=== PATIENT | male | born 1960 | race Caucasian/White ===

== ENCOUNTER → 2023-12-17 10:03 | Outpatient (REF) | payer BC, SELFPAY | LOC: RAD 10:03 | PROVIDERS: ATTENDING PHYSICIAN Physician Assistant; FAMILY PHYSICIAN Nurse Practitioner Family | DX: M25.641 Stiffness of right hand, not elsewhere classified (principal); M25.642 Stiffness of left hand, not elsewhere classified; M79.671 Pain in right foot; M79.672 Pain in left foot | CPT/HCPCS: 73130; 73630 ==

== ENCOUNTER 2024-11-09 14:19 | Emergency (ER) | payer BC, SELFPAY ==
[2024-11-09] VITALS (7 sets, daily range): BP systolic 111–144; BP diastolic 76–95; BMI 25.0
--- NOTE | 2024-11-09 15:18 | ED.GENMED ---
History of Present Illness
General
Chief Complaint: Heart Rate Problem
Source: patient and spouse
Exam Limitations: none
Time Seen by Provider: 11/09/24 14:59
Nursing documentation reviewed up to this point in time: agreed with
History of Present Illness
History of Present Illness:
64-year-old male with a past medical history of SVT who presents to the ER with his for evaluation of palpitations. Patient reports symptoms have been ongoing for the past few days he says he has had palpitations and fatigue. Reports mild
dizziness. Denies any shortness of breath or chest pain. He wears heart rate monitor he says his heart rate has consistently been above 100. Went to his primary doctor today who did the EKG which showed that he was in A-fib with RVR. He was
referred to the ER for evaluation. He has a history of SVT and says that he has 'episodes' about every month that usually last anywhere from 5 minutes to an hour but typically resolve on their own. He is not on any blood thinners or any other
medications. Previously seen by Dr. Gerber.
Past History
Past History
ED Past Medical History: None
ED Past Surgical History: None
Social History
Tobacco: Non-smoker
Review of Systems
Review of Systems
All Other Systems: ROS reviewed and negative except as documented in HPI and ROS
Constitutional: Reports fatigue; Denies fever or chills
Respiratory: Denies cough or trouble breathing
Cardiac: Reports palpitations; Denies chest pain or diaphoresis
ABD/GI: Denies abdominal pain, nausea, vomiting or diarrhea
Musculoskeletal: Denies edema, neck pain or back pain
Neurological: Reports dizzy; Denies headache
Phy Exam
Physical Exam
Physical Exam:
General: Awake, alert, oriented x3; no acute distress
Head: Normocephalic, atraumatic
Eyes: Conjunctiva normal
Throat: Airway intact, handling secretions
Neck: Trachea midline, supple without meningismus
Lungs: Clear to auscultation bilaterally, no wheezing, rales, rhonchi
Heart: Tachycardia with irregular regular rhythm, no murmurs, gallops, or rubs
Neuro: No gross deficits
Extremities: No edema in extremities, warm and well-perfused
Scores
[id number] Score for Afib Stroke Risk
Age in Years (65=0, 65-74=1, >/=75=2): <65
Sex (Female=+1): Male
Congestive Heart Failure History (Yes=+1): No
Hypertension History (Yes=+1): No
Stroke/TIA/Thromboembolism History (Yes=+2): No
Vascular Disease History (Yes=+1): No
Diabetes Mellitus (Yes=+1): No
Score: 0
Anticoagulation Recommendations: Anticoagulation not indicated (as validated in nonvalvular afib). Consider anticoagulation irrespective of score in patients with HCM
Heart Failure Risk
Heart Failure Risk Score: Not Applicable
Heart Score for Chest Pain Patients
STEMI patient?: Not applicable
Withdrawal Assessment of Alcohol
Withdrawal Assessment Completed?: Not applicable
Course
Orders/Labs/Results
Orders:
Orders
11/09/24 14:20
Electrocardiogram (*1) Urgent
Reason for Study: Abnormal EKG
EKG- Treatment ONCE
11/09/24 14:56
CMP [Comprehensive Metabolic Panel] Urgent
Magnesium Urgent
TSH Reflex To Free T4 Urgent
11/09/24 14:57
Complete Blood Count/With Diff Urgent
11/09/24 15:14
0.9% Sodium Chloride 1000 ml [Nss] 1,000 ml IV BOLUS
Diltiazem HCl [Cardizem] 10 mg IV NOW STA
11/09/24 15:30
Metoprolol Xl [Toprol Xl] 12.5 mg PO NOW STA
11/09/24 15:37
Case Management Consult ONCE
Case Management Consult: Other
Comment: eliquis
Apixaban [Eliquis] 5 mg PO ONCE ONE
Abnormal Lab Results
11/09/24 11/09/24
14:56 14:57
WBC 12.1 H 10^3/uL
(4.8-10.8)
MCH 31.8 H pg
(27.0-31.0)
Absolute Neuts (auto) 8.1 H 10^3/uL
(1.4-6.5)
Absolute Monos (auto) 0.8 H 10^3/uL
(0.1-0.6)
Carbon Dioxide 21 L mmol/L
(22-30)
BUN 29 H mg/dl
(9-20)
Glucose 184 H mg/dl
(70-99)
11/09/24 14:57
11/09/24 14:56
Vital Signs
Initial and Last Documented VS:
Initial Vital Signs
Temp Pulse Resp BP Pulse Ox
36.3 C 128 16 144/86 100
11/09/24 14:22 11/09/24 14:22 11/09/24 14:22 11/09/24 14:22 11/09/24 14:22
Last Documented Vital Signs
Temp Pulse Resp BP Pulse Ox
36.3 C 96 13 124/78 98
11/09/24 14:22 11/09/24 16:15 11/09/24 16:15 11/09/24 16:00 11/09/24 16:15
MDM/Problems Addressed
Differential Diagnosis Includes:
atrial fibrillation
MDM/Problems Addressed:
64-year-old male presents for evaluation of palpitations and fatigue, dizziness for the past few days. Found to have A-fib with RVR in his PCPs office and sent to the ER for assessment and treatment. Vital signs notable for tachycardia; physical
exam as above. Will place an IV send labs including a CBC and CMP, thyroid studies. Will provide fluids, diltiazem for rate control�would not be a good candidate for elective ED cardioversion given symptoms consistent for the past few days with no
anticoagulation on board. Will start on Eliquis pending labs. Reassess after the above.
Heart rate improved to 80s�90s with 1 dose of IV diltiazem. Will provide p.o. dose of Toprol for longer acting rate control. Patient feeling better with decreased heart rate. Continue to monitor pending labs.
Patient has remained rate controlled after medications as above. Labs reviewed CBC and CMP no clinically significant abnormalities. Thyroid studies normal. Started on Eliquis. Discussed with test case developer who helped arrange for outpatient
treatment with Eliquis. Will continue to monitor but if remains rate controlled with minimal symptoms can likely be discharged to follow-up closely with cardiology as an outpatient.
Patient remains rate controlled, feeling well. Stable for discharge with close cardiology follow-up�will refer via our chest pain hotline for expedited follow-up. Patient is very comfortable with this plan. We did speak about return precautions
all questions answered.
*Pulse Oximetry
Patient hypoxic: no
*EKG
Interpreted by ED Provider?: Yes
Heart Rate: 140
Rate: tachycardiac
Rhythm: a-fib
Doyline: left axis deviation
Interval: normal interval
QRS Pattern: normal QRS
Ischemia: non-specific ST changes
*Critical Care Note
Total Time (30-74mins, 75-104mins- exclusive of procedures): Not Applicable
Data Reviewed
Review of Other/Old Records Reveals: Labs, Records and Testing
Source: patient and spouse
ED Attending Note
-
Portions of this chart may have been created with voice recognition software.� Occasional wrong word or��sound alike� substitutions may have occurred due to the inherent limitations of voice recognition software.
Discharge Plan
Departure
Patient Disposition: Home (Routine Discharge)
Date of Disposition: 11/09/24
Time of Disposition: 16:34
Patient with high blood pressure during this ER visit?: Yes
Discharge Problem:
Atrial fibrillation
Instructions: Atrial Fibrillation (DC), Chest Pain DCA Follow Up
Prescriptions:
New
Eliquis 5 mg tablet
5 mg PO BID Qty: 60 0RF
metoprolol succinate [Toprol XL] 25 mg tablet extended release 24 hr
12.5 mg PO BID Qty: 30 0RF
No Action
Ambien
1 tab PO HS PRN (Reason: sleep)
Patient Comments:
unknown dose
aspirin [Baby Aspirin] 81 MG tablet,chewable
81 mg PO DAILY
Fish Oil
1 tab PO TID
hydrocodone-acetaminophen 1 TABLET tablet
1 tab PO Q4HPRN PRN (Reason: Pain) Qty: 15 0RF
Referrals:
Bob Gerber MD [Active] - Call in 1-3 days for appt
Activity Restrictions/Additional Instructions:
Thank you for visiting the Emergency Department at [facility].
1. Please schedule a follow up appointment as directed. Call first thing tomorrow morning to make an appointment.
2. If indicated, please take your medications as instructed and indicated on discharge paperwork.
3. If any of your symptoms do not improve, or persist, or become more severe within 6-12 hours, please return to the emergency department for further care.
4. Please return to the emergency department if you develop a headache, neck pain/stiffness, fever greater than 100.4F, chest pain, shortness of breath, persistent nausea, vomiting, slurred speech, difficulty walking, numbness/tingling, weakness,
signs of infection or any other symptoms that are worrisome to you.
Please call [phone] if you have any questions.
Interventions
Interventions:
*Risk Screen - Suicide Last Done: 11/09/24 14:25
*General Assessment Last Done: 11/09/24 14:50
*Neglect/Abuse Screening Last Done: 11/09/24 14:25
*ED COVID-19 Vaccine History Last Done: 11/09/24 14:50
ED- Cardiac Assessment Last Done: 11/09/24 14:50
ED- Pulmonary Assessment Last Done: 11/09/24 14:50
Discharge Date and Time
Print Language: SAMOAN
[2024-11-09 15:22] LABS: % Basophils 0.7 % (0-2); % Eosinophils 2.9 % (0-6); % Immature Granulocytes 0.3 % (0-0.5); % Lymphocytes 22.9 % (20.5-51.1); % Monocytes 6.9 % (1.7-9.3); % Neutrophils 66.3 % (42.2-75.2); Absolute Basophils 0.1 10^3/uL (0-0.2); Absolute Eosinophils 0.4 10^3/uL (0-0.7); Absolute Lymphocytes 2.8 10^3/uL (1.2-3.4); Absolute Monocytes 0.8 10^3/uL (0.1-0.6); Absolute Neutrophils 8.1 10^3/uL (1.4-6.5); Hematocrit 48.8 % (39.0-52.0); Hemoglobin 17.2 g/dL (13.0-18.0); Mean Corp Hgb Conc. 35.2 g/dL (33.0-37.0); Mean Corpuscular Hgb 31.8 pg (27.0-31.0); Mean Corpuscular Volume 90.2 fL (80.0-94.0); Nucleated Red Blood Cells % 0 % (-); Platelet Count 254 10^3/uL (130-400); Red Blood Cell Count 5.41 10^6/uL (4.70-6.10); Red Cell Dist. Width 12.3 % (11.5-14.5); White Blood Cell Count 12.1 10^3/uL (4.8-10.8)
[2024-11-09] MEDS: CARDIZEM 10 MG IV (15:23)
[2024-11-09] MEDS: NSS 1000 IV (15:24)
[2024-11-09 15:33] LABS: ALT (SGPT) 17 U/L (0-50); AST (SGOT) 18 U/L (17-59); Albumin 4.5 g/dl (3.5-5.0); Alkaline Phosphatase 59 U/L (38-126); Blood Urea Nitrogen 29 mg/dl (9-20); Calcium 10.1 mg/dl (8.4-10.2); Carbon Dioxide 21 mmol/L (22-30); Chloride 104 mmol/L (98-107); Estimated Creatinine Clearance 75 ml/min; Glucose 184 mg/dl (70-99); Magnesium 1.9 mg/dl (1.6-2.3); Potassium 3.9 mmol/L (3.5-5.1); Sodium 138 mmol/L (135-145); Total Protein 6.8 g/dl (6.3-8.2); eGFR > 60.00
[2024-11-09] MEDS: TOPROL XL 12.5 MG PO (15:35)
--- NOTE | 2024-11-09 15:51 | CM ---
CM confirmed nieto for Eliquis is $50. Patient updated and agreeable to cost. Eliquis coupon given.
[2024-11-09] MEDS: ELIQUIS 5 MG PO (15:52)
[2024-11-09 16:02] LABS: TSH Reflex To Free T4 2.08 uIU/ml (0.47-4.68)
== END 2024-11-09 17:24 | disposition home or self-care (01) ==
LOC: EMR 14:19
PROVIDERS: Emergency Medicine; EMERGENCY PHYSICIAN Emergency Medicine; FAMILY PHYSICIAN Family Medicine
DX: I48.91 Unspecified atrial fibrillation (principal); R53.83 Other fatigue
CPT/HCPCS: 96374; 96361; 99284; 80053; 83735; 84443; 85025; 93005

== ENCOUNTER 2025-03-30 09:50 | Day surgery (SDC) | payer BC, SELFPAY ==
[2025-03-28 12:50] VITALS: BMI 26.3
[2025-03-28 13:13] LABS: Hematocrit 44.4 % (39.0-52.0); Hemoglobin 15.6 g/dL (13.0-18.0); Mean Corp Hgb Conc. 35.1 g/dL (33.0-37.0); Mean Corpuscular Volume 90.8 fL (80.0-94.0); Nucleated Red Blood Cells % 0 % (-); Platelet Count 220 10^3/uL (130-400); Red Cell Dist. Width 12.1 % (11.5-14.5)
[2025-03-28 13:36] LABS: ALT (SGPT) 21 U/L (0-50); AST (SGOT) 22 U/L (17-59); Albumin 4.5 g/dl (3.5-5.0); Alkaline Phosphatase 46 U/L (38-126); Blood Urea Nitrogen 27 mg/dl (9-20); Calcium 10.0 mg/dl (8.4-10.2); Carbon Dioxide 26 mmol/L (22-30); Chloride 107 mmol/L (98-107); Estimated Creatinine Clearance 66 ml/min; Glucose 106 mg/dl (70-99); Potassium 4.5 mmol/L (3.5-5.1); Sodium 138 mmol/L (135-145); Total Protein 6.9 g/dl (6.3-8.2); eGFR > 60.00
[2025-03-30] VITALS (9 sets, daily range): BP systolic 132–153; BP diastolic 77–91; BMI 26.3
[2025-03-30 10:38] LABS: Glucose - Point of Care 126 mg/dl (70-99)
[2025-03-30] MEDS: LOW STRENGTH ASPIRIN 81 MG PO (10:45)
--- NOTE | 2025-03-30 13:06 | ITS.CL.CATH ---
Pit Clerk - Catheterization
Cardiac Catheterization
Procedure Report:
CARDIAC CATHETERIZATION REPORT
Date of Procedure: 03/30/2025
Referring: Willie Trinidad M.D.
Indication: Bicuspid aortic valve, accelerating angina.
PROCEDURE:
1. Right heart catheterization.
2. Coronary angiography.
3. Left heart catheterization.
4. Aortic valve interrogation.
A total of 20 minutes of procedural/moderate sedation was utilized. An independent medical policy specialist was present to assist with and help manage the patient's level of consciousness and physiologic status.
ACCESS:
1. 6 [place] right radial artery using modified Seldinger technique.
2. 5 [place] right antecubital vein using a previously placed IV.
CATHETERS:
1. 5 [place] balloon wedge.
2. 6 [place] JR4.
3. 6 [place] JL 4.
4. 6 [place] Wilfrid dual-lumen pigtail catheter.
HEMODYNAMIC DATA
Weight (kg): 84.4
AO (s/d/x, mmHg): 159/91/119
LV (s/x, mmHg): 169/24
PCWP (a/v/x, mmHg): 28/37/25
PA (s/d/x, mmHg): 43/25/31
RV (s/x, mmHg): 44/14
RA (a/v/x, mmHg): //15
SVC SvO2 (%): 67.9
IVC SvO2 (%): Not obtained.
RA SvO2 (%): Not obtained.
RV SvO2 (%): Not obtained.
PA SvO2 (%): 73.1
SaO2 (%): 95.0
Hbg (g/dL): 15.7
PEDRO
CO (L/min): 5.46
CI (L/min/m2): 2.67
Thermodilution
CO (L/min): Not performed.
CI (L/min/m2): Not performed.
TPG (mmHg): 6
PVR (Cee Units): 1.09
SVR (dynes*seconds*cm^-5): 1524
AVO2 Diff (Volume %): 4.68
AV gradient (x, mmHg): 13.38
AV area (cm2): 1.75
MV gradient (x, mmHg): Not obtained.
MV area (cm2): Not obtained.
LEFT VENTRICULOGRAPHY: Not performed.
AORTOGRAPHY: Not performed.
CORONARY ANGIOGRAPHY
Dominance: Left.
Left Main: Short, bifurcating vessel. There is no coronary artery disease.
LAD: Normal size vessel giving rise to 3 diagonals. There is a 40% lesion in the proximal LAD. There is a 90% lesion in the mid LAD after D2.
Ramus: Congenitally absent.
Circumflex: Large size, dominant vessel giving rise to 1 obtuse marginal before giving rise to a left posterolateral branch and an LPDA. There are minor luminal irregularities in the proximal circumflex. There is a 60% lesion in the distal
circumflex before the origin of the left posterolateral branch. There is a 90% lesion in the proximal margin of the LPDA.
RCA: Small size, nondominant vessel.
INTERVENTIONS
None.
Closure Device: Vascular band for the right radial artery, manual pressure for the right antecubital vein.
Radiation dose (mGy): 261.12
DAP (cm2.Gy): 23.5151
Fluoroscopy time (minutes): 5.7
CONCLUSIONS:
1. Left dominant circulation with a 40% lesion in the proximal LAD, 90% lesion in the middle LAD after D2, a 60% lesion in the distal circumflex before the origin of the left posterolateral branch and a 90% lesion in the proximal margin of the RPDA.
2. Mild aortic valve stenosis (mean gradient 13.38 mmHg, JOSUE 1.75 cm�).
3. Moderate to severely elevated filling pressures (LVEDP = 24 mmHg, PCWP = 25 mmHg at 84.4 kg).
4. Mild, postcapillary pulmonary hypertension (mean PA = 31 mmHg, PCWP = 25 mmHg, cardiac output = 5.46 L/min, PVR = 1.09 Cee units), WHO group 2.
RECOMMENDATIONS:
1. Expectant management after cardiac catheterization via right radial/antecubital approach.
2. Limited weight bearing on the right wrist for one week.
3. Consultation with CT surgery regarding optimal revascularization technique including total percutaneous, traditional CABG and hybrid procedure with MIDCAB and circumflex PCI.
4. Echocardiogram ordered and pending to completely evaluate aortic valve as well as for other valvular pathology.
5. Aggressive secondary prevention. Start atorvastatin 40 mg daily. Goal LDL <55.
6. OMT/GDMT as hemodynamics tolerate. Start isosorbide mononitrate 30 mg daily for antianginal effect.
7. Stable for outpatient follow-up.
Copy to: Willie Trinidad M.D., JEFRY Bauman
Musa Ashley DO, FACC, FACP
[2025-03-30] MEDS: NSS 1000 IV (13:15)
== END 2025-03-30 15:52 | disposition home or self-care (01) ==
LOC: CATH 09:50
PROVIDERS: ATTENDING PHYSICIAN Internal Medicine Cardiovascular Disease; FAMILY PHYSICIAN Nurse Practitioner Family
DX: I35.0 Nonrheumatic aortic (valve) stenosis (principal); I48.0 Paroxysmal atrial fibrillation; I25.10 Atherosclerotic heart disease of native coronary artery without angina pectoris; I27.20 Pulmonary hypertension, unspecified; E78.00 Pure hypercholesterolemia, unspecified; E11.9 Type 2 diabetes mellitus without complications; Z79.84 Long term (current) use of oral hypoglycemic drugs
CPT/HCPCS: 99152; C1894; 36415; 80053; 82962; 85025; 93460; Q9967

== ENCOUNTER 2025-04-13 05:08 | Inpatient (IN) | payer BC, SELFPAY ==
[2025-04-07 08:15] VITALS: BMI 25.3
[2025-04-07 09:04] LABS: Urine Character Clear (Clear)
[2025-04-07 09:07] LABS: Hematocrit 47.4 % (39.0-52.0); Hemoglobin 16.6 g/dL (13.0-18.0); Mean Corp Hgb Conc. 35.0 g/dL (33.0-37.0); Mean Corpuscular Volume 89.9 fL (80.0-94.0); Nucleated Red Blood Cells % 0 % (-); Platelet Count 284 10^3/uL (130-400); Red Cell Dist. Width 11.9 % (11.5-14.5)
[2025-04-07 09:14] LABS: INR 1.23; PT 15.8 Sec (11.4-14.6)
[2025-04-07 09:44] LABS: Glycohemoglobin (HgbA1c) 5.7 % (4.0-5.6)
[2025-04-07 09:50] LABS: ALT (SGPT) 19 U/L (0-50); AST (SGOT) 22 U/L (17-59); Albumin 4.9 g/dl (3.5-5.0); Alkaline Phosphatase 49 U/L (38-126); Blood Urea Nitrogen 24 mg/dl (9-20); Calcium 10.3 mg/dl (8.4-10.2); Carbon Dioxide 29 mmol/L (22-30); Chloride 101 mmol/L (98-107); Estimated Creatinine Clearance 62 ml/min; Glucose 108 mg/dl (70-99); Potassium 4.3 mmol/L (3.5-5.1); Sodium 139 mmol/L (135-145); Total Protein 7.6 g/dl (6.3-8.2); eGFR > 60.00
--- NOTE | 2025-04-07 11:18 | CM ---
spoke to pt in PAT's, we discussed preop mid-CABG teaching. he is prev indep, lives with his in a 2 story home with 1 step to enter. he denies any dc planning needs or dme's. plan is for dc to home when medically stable. he is agreeable to a
f/u visit form the ct transitional care nurse after dc. plan is for mid CABG 04/13, cm role explained and all questions answered.
[2025-04-13] VITALS (19 sets, daily range): BP systolic 110–130; BP diastolic 66–78; BMI 24.5
[2025-04-13] MEDS: MAGNESIUM OXIDE 500 MG PO (05:26)
[2025-04-13] MEDS: PROTONIX 40 MG PO (05:26)
[2025-04-13] MEDS: LOPRESSOR 25 MG PO (05:26)
[2025-04-13] MEDS: BACTROBAN 2% OINTMENT 1 APPLIC NASAL ×2 (05:26→20:00)
--- NOTE | 2025-04-13 05:45 | PTCARENOTE ---
pt admitted into room 2265, VS and weight obtained. pt confirms 2 showers @ home and NPO since midnight. admission questions and med rec completed. clip prep and CHG wipes done. ABO drawn and sent. pre-op meds given. @ bedside. awaiting
transfer to CVOR.
--- NOTE | 2025-04-13 06:22 | W.CVOR.SURPR ---
CVOR Surgeon Immed Pre Op
-
I have examined this patient prior to performance of the scheduled procedure.
The patient's condition is unchanged from the time of the dictated/written History and
Physical and the patient is able to undergo the scheduled procedure.
MIDCAB +/- LAAE, will discuss with IC re: stenting to residual mid Circ lesions on index admission
[2025-04-13 07:34] LABS: B.E. - POC 0.0 mmol/L; Glucose - POC 116 mg/dl (70-99); HCO3 - POC 25 mmol/L (21-28); Hematocrit - POC 38 % PCV (42-52); Hemodilution- POC No; Hemoglobin Calculated - POC 12.9; Ionized Calcium - POC 1.18 mmol/L (1.15-1.33); Lactate - POC 0.97 mmol/L (0.36-0.75); O2 Saturation %Calculated-POC 99.9 % (94-98); PCO2 - POC 42 mmHg (35-48); PO2 - POC 306 mmHg (83-108); Potassium - POC 4.2 mmol/L (3.5-5.1); Sodium - POC 141 mmol/L (136-145); Specimen Type - POC Arterial; pH - POC 7.38 (7.35-7.45)
[2025-04-13 07:34] LABS: ACT+ - POC 109 Seconds (82-134)
[2025-04-13 07:38] LABS: Urine Character Slightly Cloudy (Clear)
--- NOTE | 2025-04-13 07:57 | CM ---
Reviewed chart. Mr. Ortiz i s in the operating room today. Prior to admission he resides with his spouse in a two story home with one step to enter. Prior to admission he was independent with ambulation and adls. He does not have any DME in the
home. He has a prescription plan. Medical work-up in progress. The discharge plan is to return home with his spouse and a home visit by the Transitional Care Nurse when medically stable.
[2025-04-13 08:32] LABS: Urine Squamous Cell 16-20 /LPF (Few)
[2025-04-13 08:34] LABS: Urine Red Blood Cell 30-40 /HPF (0-2)
[2025-04-13 09:39] LABS: B.E. - POC -0.2 mmol/L; Glucose - POC 131 mg/dl (70-99); HCO3 - POC 27 mmol/L (21-28); Hematocrit - POC 39 % PCV (42-52); Hemodilution- POC No; Hemoglobin Calculated - POC 13.3; Ionized Calcium - POC 1.18 mmol/L (1.15-1.33); Lactate - POC 1.36 mmol/L (0.36-0.75); O2 Saturation %Calculated-POC 98.8 % (94-98); PCO2 - POC 53 mmHg (35-48); PO2 - POC 135 mmHg (83-108); Potassium - POC 4.4 mmol/L (3.5-5.1); Sodium - POC 142 mmol/L (136-145); Specimen Type - POC Arterial; pH - POC 7.32 (7.35-7.45)
[2025-04-13 09:39] LABS: ACT+ - POC 930 Seconds (82-134)
[2025-04-13 10:02] LABS: B.E. - POC -2.6 mmol/L; Glucose - POC 131 mg/dl (70-99); HCO3 - POC 24 mmol/L (21-28); Hematocrit - POC 38 % PCV (42-52); Hemodilution- POC No; Hemoglobin Calculated - POC 13.1; Ionized Calcium - POC 1.16 mmol/L (1.15-1.33); Lactate - POC 1.38 mmol/L (0.36-0.75); O2 Saturation %Calculated-POC 98.8 % (94-98); PCO2 - POC 46 mmHg (35-48); PO2 - POC 134 mmHg (83-108); Potassium - POC 4.4 mmol/L (3.5-5.1); Sodium - POC 140 mmol/L (136-145); Specimen Type - POC Arterial; pH - POC 7.32 (7.35-7.45)
--- NOTE | 2025-04-13 10:28 | W.PN.CT.SURG ---
CT Surgery Operative Note
-
CARDIAC SURGERY OPERATIVE REPORT
Preoperative Diagnosis: Coronary Artery Disease with proximal LAD involvement and paroxysmal afib
Postoperative Diagnosis: Same
Procedure(s) Performed:
1. Robotic assisted MIDCAB (single-vessel bypass PINO in situ to LAD)
2. Robotic assisted harvest of internal mammary artery with anterolateral mini thoracotomy for CABG
3. Transesophageal echocardiography
4. Transonic Flowprobe assessment of PINO graft
5. Left atrial appendage exclusion done mainly basically (35mm clip)
Date of Surgery: 04/13/25
Comorbidities:
1. Coronary artery disease involving the proximal LAD
2. Paroxysmal atrial fibrillation on chronic anticoagulation
3. History of thyroid nodules
4. Arthritis
5. Diabetes
Attending Surgeon: Babatunde Salguero MD, MS
Assistants: Zunilda Allen PA-C (present and necessary to first officer and flight instructor, exchanging robotic instruments, and wound closure under my direction) and Adilene Juarez PA-C (retraction, suction, exposure, suture management)
Anesthesiology: Nabil Harrington MD and Siena Luong CRNA
Scrub and Circulating RNs: Lisa Woodard, CATHRYN, Bethany Franco RN
Roller Mill Tender: Carolin Jerez CCP
Anesthesia: GETA
EBL: per perfusion records
Products: None
Indication(s) for Procedures: This is a 65-year-old male who was found to have a 90% lesion in the proximal and mid LAD just after the second diagonal vessel. He also had a 60% mid mid to distal circumflex lesion in the straight portion. Given the
findings, we discussed multidisciplinary team approach for hybrid revascularization. He was seen in the office and ultimately agreed to move forward with robotic assisted MIDCAB with PINO to LAD followed by stenting to the residual circumflex
disease. As he had paroxysmal atrial relation was indicated to ligate his left atrial appendage as I was working the left side of his hemithorax already.
Conduit(s) Quality/Internal Diameter:
PINO -excellent, flow probe analysis, 39 cc/min, PI of 2.8
Target(s) Quality/Internal Diameter:
LAD -excellent, there was some eccentric plaque throughout the vessel however he had easily accommodated a 2.0 mm shunt.
Findings: His left ventricular ejection fraction preoperatively was normal at 60% with no significant regional wall motion abnormalities. He has a known bicuspid aortic valve, type 0 with a mild gradient. No significant insufficiency. Following
surgery his EF remained the same at 60% with no new regional wall motion abnormalities. His left atrial appendage was verified to be free of any thrombus or debris preoperatively and clipped with a 35 mm device flush to the base verified on echo
and color-flow Doppler to have no residual flow into the lumen. The PINO was harvested in a skeletonized fashion. The mammary graft was verified with Doppler probe to have excellent signals.
Description of Procedure: The patient was taken to the operating room. Their identity and procedure to be performed were verified and they were positioned supine on the operating table. Induction via general anesthesia with endotracheal intubation
was performed and central venous access and arterial monitoring were inserted. A preoperative transesophageal echocardiogram was performed to assess cardiac function and valvular function. The patient was then prepped and draped from chin to feet in
a sterile fashion and positioned with left side bumped up and left arm down. A preoperative time-out was performed with all members of the team present. A Veress needle was used to enter the chest after stopping ventilation with the left lung
verified by anesthesia. We started with slow pressure insufflation which they tolerated. An 8 mm port was inserted in the fourth intercostal space laterally and a camera was inserted verifying no intrathoracic iatrogenic injuries. 2 additional
ports(8 mm and 8mm) were placed along the midaxillary line on either side of the camera port. Single 12 mm air seal port was used for the corporate law assistant to pass instruments and sutures. The robotic platform was then docked and targeted towards the
mammary. A posterior pericardiotomy was created to facilitate drainage. The phrenic nerve was quite posterior and so I made an anterior pericardiotomy and extended towards the pulmonary artery and aorta. The left atrial appendage was seen here and
fit a chicken wing morphology. I then used the corporate law assistant port in order to insert a 35 mm low-profile clip and using Endo Kitner with the robotic arms facilitating exposure. The device was placed flush the base and verified on ALIZA to be totally
occlusive with no residual lobes or lumen. The mammary was harvested in a skeletonized fashion. Once sufficient length was obtained, an anterior pericardiotomy was created to identify the distal target. This was marked with a marker robotically.
Full heparinization was given. 4 Hem-o-jessica clips were used to occlude and divide the mammary distally at its bifurcation, and a single silk suture and clip was used to secure the mammary to the pericardium overlying the LAD target. The robot
platform was then undocked and the patient and a left anterior thoracotomy was created over the target vessel. Upon entering the thoracic cavity the mammary and LAD were visible. A thoracotomy retractor was placed to facilitate exposure and a
pericardial well was created. The ACT was confirmed to be over 400.
The cardiac suction stabilizer was used to isolate the LAD target. The distal end of the mammary was prepped and beveled to size. We verified orientation and length of the LEIA and found brisk flow. A coronary arteriotomy was created and enlarged
with coronary raygoza scissors. A 2mm shunt was inserted to facilitate exposure and continued habematolel coronary perfusion. An end-to-side anastomosis was created with a 7-0 prolene. The bulldog on the mammary was removed which demonstrated excellent
graft flow. The shunt was then remove and demonstrated excellent habematolel flow. Appropriate hemostasis was confirmed. The mammary graft was inspected and was free from kinking or twisting and flowprobe evaluation demonstrated good flow and PI. A test
dose of protamine was administered and the patient was monitored for any adverse reaction before resuming protamine. A 19F David drain into the left chest. A #2 Ethibond suture was used to approximate the rib space. Fascia was approximated with #1
vicryl suture. Local analgesia was administered to the surgical sites. The subcutaneous, dermis and epidermis were closed in layers in a running fashion. The skin wound was cleansed and dressed.
All instrument, sponge, and needle counts were confirmed to be correct x 2 at the end of the operation. The patient was transferred to the cardiac intensive care unit extubated in critical but stable condition.
I, Dr. Babatunde Salguero, was present, scrubbed for, and performed all critical elements of this procedure.
Babatunde Salguero MD, MS
Cardiothoracic Surgeon
[facility]
This operative dictation was created using the [employer] dictation system. Please excuse any grammatical, typographical, or 'sound alike' errors
[2025-04-13 11:06] LABS: Glucose - Point of Care 151 mg/dl (70-99)
[2025-04-13] MEDS: NSS 500 IV (11:13)
[2025-04-13] MEDS: CARDENE 200 IV ×2 (11:14→19:15)
--- NOTE | 2025-04-13 11:26 | PTCARENOTE ---
Received pt from CVOR team. Sleepy but awakens to voice. BP elevated and managed by Anesthesia. SR 70's on monitor. RT IJ cordis with slick, CVP transducing. RT radial A line also intact and transducing. Lines leveled, recalibrated and
flushed. SImple mask 7 L on arrival, pulse ox 98%. Transitioned to 6 L via NC as pt not having any noted apnea at present. Chest tube x 1 to LT lateral chest. No air leak or crepitus noted. Cardene initiated for HTN. Responded well. Cooley
draining clear yellow urine. Pulses palpable. Plan for day discussed.
[2025-04-13 11:32] LABS: B.E. -2.9 mmol/L; HCO3 24.1 mmol/L (21-28); O2 Saturation % 98.8 % (94-98); PCO2 49 mmHg (35-48); PO2 106 mmHg (83-108); Potassium 3.9 mMOL/L (3.5-5.1); Sodium 135 mMOL/L (136-145)
[2025-04-13 11:34] LABS: Hematocrit 42.7 % (39.0-52.0); Hemoglobin 14.8 g/dL (13.0-18.0); Platelet Count 235 10^3/uL (130-400)
--- NOTE | 2025-04-13 11:34 | W.PN.CD ---
Addendum entered and electronically signed by Hernandez Ceron MD 04/13/25 17:01:
I saw and examined the patient.
The DRYING MACHINE BACK TENDER's note was reviewed and I agree with the note.
Comment: Patient successfully extubated by the time I evaluated him. He has no complaints. Cardene was weaned off. Remains only on insulin drip. He is lying comfortably flat in the bed, regular rate and rhythm with normal S1-S2 lungs are clear
to auscultation anteriorly.
Will continue to monitor on telemetry. Continue postop day [address] surgery team. In sinus rhythm but Eliquis should be resumed when able. Will continue to follow.
Original Note:
Today's Communication / Plan
-
-close post-op monitoring and care per CVICU/CT surgery protocol
Impression / Plan
-
65 y/o male (patient of Dr. Trinidad) with DM, RA, PAF on Eliquis, HTN, and CAD is now s/p MIDCAB.
CAD:
-s/p robotic assisted MIDCAB (single-vessel bypass PINO in situ to LAD), Left atrial appendage exclusion done mainly basically (35mm clip)- Dr. Salguero 04/13/25
-post-op EKG NSR with NS T abnormality- similar to pre-op. Tele SR.
-extubated, chest tube in place, waking up from sedation
-remains on Cardene drip, which requires intensive monitoring
-ASA, statin, BB
PAF:
-stable in SR, follow telemetry
-on Eliquis as OP- resume when safe post-op
HTN:
-monitor post-op
Bicuspid AV:
-mild , monitor over time
DM:
-on insulin drip post-op per protocol
Data:
Echo 04/07/25: EF 60-65% Thickened bicuspid aortic valve. Mild aortic stenosis. Estimated pulmonary artery pressure of 20-25 mmHg.
Cath 03/30/25: Left dominant circulation with a 40% lesion in the proximal LAD, 90% lesion in the middle LAD after D2, a 60% lesion in the distal circumflex before the origin of the left posterolateral branch and a 90% lesion in the proximal margin
of the RPDA. Mild aortic valve stenosis (mean gradient 13.38 mmHg, JOSUE 1.75 cm�). Moderate to severely elevated filling pressures (LVEDP = 24 mmHg, PCWP = 25 mmHg at 84.4 kg). Mild, postcapillary pulmonary hypertension (mean PA = 31 mmHg, PCWP = 25
mmHg, cardiac output = 5.46 L/min, PVR = 1.09 Cee units), WHO group 2.
Physical Exam
Vital Signs/Labs
Vital Signs
Temp Pulse Resp BP Pulse Ox
95.2 F L 68 14 121/67 98
04/13/25 11:25 04/13/25 11:09 04/13/25 11:09 04/13/25 05:33 04/13/25 11:09
04/12/25 04/13/25 04/14/25
06:59 06:59 06:59
Actual Weight 81.8 kg
PT 15.8 Sec (11.4-14.6) H 04/07/25 08:28
INR 1.23 04/07/25 08:28
Physical Exam
Constitutional: No acute distress
EENT: Anicteric
Cardiovascular: Rhythm & rate is regular
Respiratory: Respiratory effort normal, Lungs clear to auscul. and Other (on O2 by NC)
Neuro/Psych: Alert and Other (waking up from sedation)
Data Reviewed
-
Date of Service: April 13, 2025
EKG: Tracing Personally Visualized and interpreted (SR with NS T abnormality) and Other (SR)
Echo: Report Reviewed by me (pre-op echo as noted)
Labs: Labs Reviewed by me
[2025-04-13] MEDS: KCL 50 IV (11:43)
[2025-04-13] MEDS: CALCIUM GLUCONATE 100 IV (11:43)
[2025-04-13] MEDS: ANCEF 10 IV ×2 (11:44)
[2025-04-13 11:47] LABS: INR 1.22; PT 16.0 Sec (11.4-14.6)
[2025-04-13 11:48] LABS: APTT 33.0 Sec (23.4-35.0)
[2025-04-13 12:00] LABS: Blood Urea Nitrogen 23 mg/dl (9-20); Estimated Creatinine Clearance 74 ml/min; Glucose 153 mg/dl (70-99); Magnesium 2.2 mg/dl (1.6-2.3)
[2025-04-13 12:09] LABS: Glucose - Point of Care 202 mg/dl (70-99)
[2025-04-13 12:12] LABS: B.E. -2.6 mmol/L; HCO3 24.2 mmol/L (21-28); O2 Saturation % 98.9 % (94-98); PCO2 48 mmHg (35-48); PO2 111 mmHg (83-108)
[2025-04-13] MEDS: TYLENOL PO (12:24)
[2025-04-13 13:06] LABS: Glucose - Point of Care 205 mg/dl (70-99)
--- NOTE | 2025-04-13 13:31 | CON.INTV ---
Consultation
Consultation Request
Date/Time Consultation Requested: 04/13/2025
Date/Time Consultation Performed: 04/13/2025
Requesting Provider: Dr. Salguero
Performing Provider: Dr. Saúl Gimenez
Reason for Consultation: Status Post Robotic Assisted CAB
Medical History
-
History of Present Illness:
64-year-old man with past medical history significant for anxiety, seasonal allergies, neuropathy, type 2 diabetes who recently underwent cardiac catheterization that demonstrated multivessel coronary artery disease. Ejection fraction was preserved.
He was evaluated by CT surgery. Underwent robotic assisted coronary artery bypass of the LAD 04/13/2025.
Patient was extubated in the operating room.
Currently on moderate supplemental oxygen. Waking up from anesthesia
Denies shortness of breath
Pain is manageable
Hemodynamically requiring low-dose Levophed.
Past Medical History
Past Medical History: Other (See assessment and plan)
Social History
Tobacco: Non-smoker (Never smoker)
Alcohol: Occasional
Drug: None
Personal:
Living: With Family
Employment: Retired
Family History
Family History: Reviewed & Not Pertinent
Allergies / Home Medications
Allergies
Allergy/AdvReac Type Severity Reaction Status Date / Time
No Known Allergies Allergy Verified 04/13/25 05:26
Home Medications
�Medication �Instructions �Recorded �Confirmed �Last Taken �Type
apixaban 5 mg tablet (Eliquis) 5 mg PO BID #60 tabs 11/09/24 04/13/25 04/07/25 Rx
aspirin 81 mg tablet 81 mg PO DAILY 03/30/25 04/13/25 04/09/25 History
atorvastatin 40 mg tablet 40 mg PO QPM #90 tabs 03/30/25 04/13/25 04/12/25 Rx
dextroamphetamine-amphetamine 20 20 mg PO DAILY 03/30/25 04/13/25 04/08/25 History
mg tablet (Adderall)
furosemide 40 mg tablet (Lasix) 40 mg PO DAILY #90 tabs 03/30/25 04/13/25 04/09/25 Rx
hydroxychloroquine 200 mg tablet 200 mg PO BID 03/30/25 04/13/25 04/09/25 History
isosorbide mononitrate 30 mg 30 mg PO DAILY #30 tabs 03/30/25 04/13/25 04/09/25 Rx
tablet,extended release 24 hr
metformin 500 mg tablet 500 mg PO DAILY 03/30/25 04/13/25 04/12/25 History
Held on 03/30/25.
Instructions: Resume on
04/01/25.
metoprolol succinate 25 mg 12.5 mg PO QPM 03/30/25 04/13/25 04/12/25 History
tablet,extended release 24 hr
(Toprol XL)
metformin 500 mg tablet 1,000 mg PO HS 04/06/25 04/13/25 04/12/25 History
zolpidem 12.5 mg tablet,extended 12.5 mg PO PRN PRN Insomnia 04/06/25 04/13/25 Unknown History
release,multiphase
Review of Systems
-
History Source: Patient
All other systems: Negative unless noted
Vitals / Labs / Diagnostic Testing
Vital Signs
Temp Pulse Resp BP Pulse Ox
95.9 F L 81 16 113/67 96
04/13/25 13:00 04/13/25 13:00 04/13/25 13:00 04/13/25 12:00 04/13/25 13:00
Lab Data
04/13/25 10:26
Laboratory Results
04/13/25 04/13/25
11:00 12:05
PT 16.0 H
INR 1.22
APTT 33.0
pH 7.30 L 7.31 L
pCO2 49 H 48
pO2 106 111 H
HCO3 24.1 24.2
O2 Delivery Level
Diagnostic Testing:
Physical Exam
-
HEENT: Normocephalic
Cardiovascular: S1/S2
Respiratory: Clear, Non-Labored Respirations and Other (Chest tube in place without significant air leak or excessive drainage)
GI: Soft and Non Distended
Neurology: Awake
Skin: Warm
General: Comfortable
Assessment
-
65-year-old man with past medical history noted below. Admitted to the hospital for elective hybrid approach of his coronary artery disease. Robotic assisted coronary artery bypass and percutaneous intervention of the circumflex. Underwent
surgery 04/13/[address] Salguero without complications. Transferred to the critical care unit for further care
Status post robotic assisted coronary artery bypass 04/13/2025-Dr. Salguero
-
Coronary artery disease
Cardiac catheterization 03/30/2025:. Left dominant circulation with a 40% lesion in the proximal LAD, 90% lesion in the middle LAD after D2, a 60% lesion in the distal circumflex before the origin of the left posterolateral branch and a 90% lesion
in the proximal margin of the RPDA.
2. Mild aortic valve stenosis
Echo 04/07/25: EF 60-65% Thickened bicuspid aortic valve. Mild aortic stenosis. Estimated pulmonary artery pressure of 20-25 mmHg.
Conditions present prior admission:
Thyroid nodules
Bicuspid aortic valve-mild
Chronic anxiety
Paroxysmal atrial fibrillation on anticoagulation
Seasonal allergies
Diabetes with neuropathy
Assessment and plan:
He is doing well postop-currently on mechanical ventilation and appears comfortable.
Extubated
Still waking up from anesthesia
On low rate supplemental oxygen
Clear lung exam
Incentive spirometry when able
Anemia noted-no evidence of acute bleeding
Follow H&H serially
Hemodynamics -acceptable on low-dose Levophed
Follow hemodynamics via arterial line and PA catheter.
Urinary output adequate
Renal function normal
?For percutaneous intervention tomorrow left circumflex lesion
Cardiology following
Chest tube with no excessive drainage-no air leak.
Chest x-ray reviewed: With no pneumothorax or fluid collections. Left chest tube in place. Mild left-sided interstitial changes.
Remain nothing by mouth
Head of the bed elevation
Glycemic control per protocol-insulin drip.
DVT prophylaxis when safe from the surgical perspective.
Critical care statement: A total of 32 minutes of critical care time was provided for this patient today. This includes management of unstable vital signs, evaluation of the patient at bedside, reviewing the patient's pertinent medical records
including ventilator settings, arterial blood gases, radiographs, microbiology, laboratory evaluations and discussion with primary team, critical care nursing, and respiratory therapy.
[2025-04-13 13:53] LABS: Glucose - Point of Care 163 mg/dl (70-99)
[2025-04-13 15:07] LABS: Glucose - Point of Care 115 mg/dl (70-99)
--- NOTE | 2025-04-13 15:18 | PTCARENOTE ---
Awake alert and oriented. Follows command. Cardene titrated as needed.
[2025-04-13 15:35] LABS: Hematocrit 42.6 % (39.0-52.0); Hemoglobin 15.2 g/dL (13.0-18.0); Platelet Count 238 10^3/uL (130-400)
[2025-04-13 15:59] LABS: Glucose - Point of Care 109 mg/dl (70-99)
[2025-04-13] MEDS: LOW STRENGTH ASPIRIN 81 MG PO (15:59)
[2025-04-13] MEDS: NEURONTIN 100 MG PO ×2 (15:59→22:02)
[2025-04-13] MEDS: PACERONE 200 MG PO ×2 (16:00→22:03)
[2025-04-13] MEDS: LIPITOR PO (16:00)
[2025-04-13] MEDS: ROXICODONE 5 MG PO (17:29)
[2025-04-13] MEDS: ANCEF 5 IV (17:29)
[2025-04-13 18:06] LABS: Glucose - Point of Care 137 mg/dl (70-99)
[2025-04-13] MEDS: DILAUDID 0.25 MG IV (19:14)
[2025-04-13] MEDS: ZOFRAN 4 MG IV (19:16)
[2025-04-13] MEDS: PLAQUENIL 200 MG PO (19:56)
[2025-04-13] MEDS: SENOKOT-S 1 TABLET PO (19:56)
[2025-04-13 20:08] LABS: Glucose - Point of Care 109 mg/dl (70-99)
--- NOTE | 2025-04-13 21:00 | PTCARENOTE ---
Assumed care of patient at 1900. Patient found resting in bed with spouse at bedside at time of assessment. Patient is AOx4, follows commands appropriately, moves all extremities. Lung sounds are clear and respirations are shallow. saO2 99% on 2L
via NC. Patient has CTx1: L pleural draining to one atrium. Heart sounds are audible, a rub is present on auscultation, patient has normal palpable pulses and no observable edema. Patient has hypoactive BS and malloy draining clear yellow urine.
There are two small L lateral chest incisions approx with surg adhesive USER EXPERIENCE ANALYST and larger L lateral chest incision below the pectoral that is approx with surg adhesive USER EXPERIENCE ANALYST ecchymotic around site. Patient has R IJ cordis with slic receiving KVO, R
radial angel and L wrist 18G PIV receiving insulin gtt. Patient currently on insulin col 2 and cardene@5. Patient received dilaudid 0.25 for pain at change of shift as well as zofran for nausea. Call [facility] within reach.
[2025-04-13] MEDS: TYLENOL 1000 MG PO (22:02)
[2025-04-13] MEDS: COREG 3.125 MG PO (22:02)
[2025-04-13 22:13] LABS: Glucose - Point of Care 133 mg/dl (70-99)
[2025-04-14] VITALS (29 sets, daily range): BP systolic 86–132; BP diastolic 58–75; BMI 25.3
--- NOTE | 2025-04-14 | PTCARENOTE ---
Patient reassessed. Patient remains hypertensive cardene titrated to 7.5 pain management intervention. Intermittent nausea reported at times. Remains SR on the monitor. All other VSS. Call salinas within reach.
[2025-04-14 00:04] LABS: Glucose - Point of Care 128 mg/dl (70-99)
[2025-04-14] MEDS: ROXICODONE 5 MG PO (00:37)
[2025-04-14] MEDS: DILAUDID 0.25 MG IV (01:12)
[2025-04-14 02:08] LABS: Glucose - Point of Care 129 mg/dl (70-99)
[2025-04-14] MEDS: CARDENE 200 IV (02:13)
[2025-04-14] MEDS: ANCEF 5 IV ×2 (02:13→10:44)
[2025-04-14 03:05] LABS: Hematocrit 44.1 % (39.0-52.0); Hemoglobin 15.9 g/dL (13.0-18.0); Mean Corp Hgb Conc. 36.1 g/dL (33.0-37.0); Mean Corpuscular Volume 87.2 fL (80.0-94.0); Platelet Count 261 10^3/uL (130-400); Red Cell Dist. Width 11.9 % (11.5-14.5)
[2025-04-14] MEDS: TORADOL 15 MG IV (03:06)
[2025-04-14] MEDS: IMDUR (EXTENDED RELEASE) 30 MG PO (03:07)
[2025-04-14 03:25] LABS: Blood Urea Nitrogen 22 mg/dl (9-20); Calcium 9.2 mg/dl (8.4-10.2); Carbon Dioxide 22 mmol/L (22-30); Chloride 106 mmol/L (98-107); Estimated Creatinine Clearance 91 ml/min; Glucose 136 mg/dl (70-99); Magnesium 1.9 mg/dl (1.6-2.3); Potassium 4.3 mmol/L (3.5-5.1); Sodium 135 mmol/L (135-145); eGFR > 60.00
--- NOTE | 2025-04-14 03:37 | W.PN.CT ---
Today's Communication / Plan
-
pod#1
- NPO for planned PCI of LCx
- continue ASA/Plavix/Lipitor>may transition to Eliquis/Plavix due to hx PAF
- Metoprolol to Coreg for improved BP control
- keep angel until PCI approach verified
- DC Slik
- resume MFM when tolerating solids
- DC Iron as Hb 15.9
- trend CBC/temp
Assessment / Plan
-
Robotic assisted MIDCAB (single-vessel bypass PINO in situ to LAD), left atrial appendage exclusion (35mm clip)-Dr. Salguero 04/13/25-pod #1
1. Coronary artery disease involving the proximal LAD and LCx
2. Paroxysmal atrial fibrillation on chronic anticoagulation (Eliquis)
3. History of thyroid nodules
4. Arthritis
5. Diabetes (A1C 5.7)
6. ADHD (on Adderall)
- Acute postop respiratory insufficiency
- Acute post-op leukocytosis w/o [id number] due to infklammation
Discussed patient care with: Cardiology and Nursing
Subjective
Procedure
Robotic assisted MIDCAB (single-vessel bypass PINO in situ to LAD), left atrial appendage exclusion (35mm clip)-Dr. Salguero 04/13/25-pod #1
-
Date of Service: April 14, 2025
Objective Data
-
Lab Results
04/14/25 02:52
04/14/25 02:52
PT 16.0 Sec (11.4-14.6) H 04/13/25 11:00
INR 1.22 04/13/25 11:00
APTT 33.0 Sec (23.4-35.0) 04/13/25 11:00
Vital Signs
Vital Signs
Temp Pulse Resp BP Pulse Ox
99.9 F 89 18 132/74 95
04/14/25 03:13 04/14/25 03:00 04/14/25 03:13 04/14/25 03:00 04/14/25 03:13
CT Intake/Output/Weight
04/13/25 04/13/25 04/14/25
06:59 18:59 06:59
Intake Total 692.3 / 1067.3 375.0 / 1067.3
Output Total 1025 / 1535 510 / 1535
Balance -332.7 / -467.7 -135.0 / -467.7
SaO2: 95
Physical Exam
-
General: AOx3
Cardiovascular: Regular rate & rhythm
Respiratory: Clear
Sternum: Other (right anterior mini thoracotomy stable)
Incision: Clean, Dry and Intact
Data Reviewed
-
Lab Results: Results Reviewed
Medications: Active Meds Reviewed
Chest X-Ray: Report Reviewed and Image Reviewed
ECG: Report Reviewed and Image Reviewed
[2025-04-14 04:22] LABS: Glucose - Point of Care 142 mg/dl (70-99)
[2025-04-14] MEDS: TYLENOL 1000 MG PO ×3 (05:20→21:57)
[2025-04-14] MEDS: COLCHICINE 0.3 MG PO ×2 (05:20→09:54)
[2025-04-14 06:19] LABS: Glucose - Point of Care 158 mg/dl (70-99)
--- NOTE | 2025-04-14 06:30 | PTCARENOTE ---
Patient reassessed. AM EKG noted to have ST elevation in lateral leads. Colchicine ordered. Serial trops ordered initial trop drawn. F/u EKG ordered. ECHO ordered. Patient to remain lined and in bed for AM. Remains SR on the monitor. Call salinas
within reach.
--- NOTE | 2025-04-14 06:40 | W.PN.UPDATE ---
Update Note
Progress Note Update
Morning ECG with lateral ST elevation. Patien c/o incisional discomfort.ECG sent to engineering surveyor on -call and Dr Salguero notified. Troponin, echo and repeat ECG ordered per cardiology. Scheduled for PCI>LCx today. +rub>Colchicine ordered (0.3mg daily
as on Amio)
[2025-04-14 07:09] LABS: Troponin I 0.230 ng/ml
[2025-04-14 07:36] LABS: Glucose - Point of Care 142 mg/dl (70-99)
[2025-04-14] MEDS: NOVOLIN R INSULIN INFUSION 100 IV (07:41)
--- NOTE | 2025-04-14 07:44 | ECGCV ---
Africa Quan notified of ECG critical value identified by electronic interpretation on ECG completed on 04/14/25, at 0455.
--- NOTE | 2025-04-14 07:56 | W.PN.CD ---
Today's Communication / Plan
-
- Patient with some lateral ST elevation on ECG. Currently without chest discomfort to suggest angina. He has discomfort which seems postoperative worse with inspiration and movement. Patient with rub on exam. Echocardiogram performed showed
normal left ventricular function and no wall motion abnormality. Issues reviewed with Dr. Short and Dr. Salguero.. Significant likelihood that the ECG changes are pericardial considering left lateral incision and other clinical findings.
-ASA, statin, BB he has
- Patient does have residual circumflex disease including L PDA disease being assessed for PCI. Plan for cath later today. Timing was reviewed with Dr. Salguero and Dr. Short
Impression / Plan
-
65 y/o male (patient of Dr. Trinidad) with DM, RA, PAF on Eliquis, HTN, and CAD is now s/p MIDCAB.
CAD:
-s/p robotic assisted MIDCAB (single-vessel bypass PINO in situ to LAD), Left atrial appendage exclusion done mainly basically (35mm clip)- Dr. Salguero 04/13/25
- Patient feels better today. Patient had some chest discomfort with deep inspiration and positional change but says no chest discomfort if not moving.
- Patient with some lateral ST elevation on ECG. Currently without chest discomfort to suggest angina. He has discomfort which seems postoperative worse with inspiration and movement. Patient with rub on exam. Echocardiogram performed showed
normal left ventricular function and no wall motion abnormality. Issues reviewed with Dr. Short and Dr. Salguero.. Significant likelihood that the ECG changes are pericardial considering left lateral incision and other clinical findings.
-ASA, statin, BB he has
- Patient does have residual circumflex disease including L PDA disease being assessed for PCI. Plan for cath later today. Timing was reviewed with Dr. Salguero and Dr. Short
PAF:
-stable in SR, follow telemetry
-on Eliquis as OP- resume when safe post-op
HTN:
-monitor post-op
Bicuspid AV:
-mild , monitor over time
DM:
-on insulin drip post-op per protocol
Data:
Echo 04/07/25: EF 60-65% Thickened bicuspid aortic valve. Mild aortic stenosis. Estimated pulmonary artery pressure of 20-25 mmHg.
Cath 03/30/25: Left dominant circulation with a 40% lesion in the proximal LAD, 90% lesion in the middle LAD after D2, a 60% lesion in the distal circumflex before the origin of the left posterolateral branch and a 90% lesion in the proximal margin
of the RPDA. Mild aortic valve stenosis (mean gradient 13.38 mmHg, JOSUE 1.75 cm�). Moderate to severely elevated filling pressures (LVEDP = 24 mmHg, PCWP = 25 mmHg at 84.4 kg). Mild, postcapillary pulmonary hypertension (mean PA = 31 mmHg, PCWP = 25
mmHg, cardiac output = 5.46 L/min, PVR = 1.09 Cee units), WHO group 2.
Physical Exam
Vital Signs/Labs
Vital Signs
Temp Pulse Resp BP Pulse Ox
98.9 F 84 18 114/64 93
04/14/25 06:00 04/14/25 07:45 04/14/25 06:00 04/14/25 07:00 04/14/25 07:45
04/13/25 04/14/25 04/15/25
06:59 06:59 06:59
Actual Weight 81.8 kg 84.5 kg
04/14/25 02:52
04/14/25 02:52
PT 16.0 Sec (11.4-14.6) H 04/13/25 11:00
INR 1.22 04/13/25 11:00
APTT 33.0 Sec (23.4-35.0) 04/13/25 11:00
Magnesium 1.9 mg/dl (1.6-2.3) 04/14/25 02:52
LAB Results
04/14/25
06:23
Troponin I 0.230 H*
Physical Exam
Constitutional: No acute distress
Cardiovascular: Rhythm & rate is regular and Other (Pericardial rub present. Left lateral and incision/dressing CDI)
Respiratory: Respiratory effort normal
GI: Soft and Normal bowel sounds
Neuro/Psych: Alert
Data Reviewed
-
Date of Service: April 14, 2025
Medical Decision Making: External Notes
Echo: Report Reviewed by me
Medical Tests (PFT, Pathology etc): Report Reviewed by me
Labs: Labs Reviewed by me
[2025-04-14 09:11] LABS: Glucose - Point of Care 108 mg/dl (70-99)
[2025-04-14] MEDS: PLAVIX 75 MG PO (09:54)
[2025-04-14] MEDS: MAGNESIUM OXIDE 500 MG PO ×2 (09:55→20:22)
[2025-04-14] MEDS: LOW STRENGTH ASPIRIN 81 MG PO (09:55)
[2025-04-14] MEDS: KCL 10 MEQ PO (09:55)
[2025-04-14] MEDS: PLAQUENIL 200 MG PO ×2 (09:55→20:22)
[2025-04-14] MEDS: NEURONTIN 100 MG PO ×3 (09:56→21:57)
[2025-04-14] MEDS: PACERONE 200 MG PO ×3 (09:56→21:57)
[2025-04-14] MEDS: PROTONIX 40 MG PO (09:56)
[2025-04-14] MEDS: BACTROBAN 2% OINTMENT 1 APPLIC NASAL ×2 (09:56→21:58)
[2025-04-14] MEDS: SENOKOT-S 1 TABLET PO ×2 (09:56→20:22)
[2025-04-14 10:44] LABS: Glucose - Point of Care 126 mg/dl (70-99)
[2025-04-14] MEDS: NSS IV (10:44)
--- NOTE | 2025-04-14 10:46 | CM ---
Reviewed chart. Met with and Mrs. Ortiz to review discharge plans. He states he is feeling well. He states prior to admission he resides with his spouse in a two story home with one step to enter. He states he has a full flight of steps to
get to bedroom/full bathroom. He states he has a powder room on the first floor. He states he does not have any DME in the home. He states he has a prescription plan. His spouse states she will be home to assist in his care if needed. We reviewed
a home visit by the Transitional Care Nurse. He is agreeable to a home visit. Medical work-up in progress. The discharge plan is to return home with his spouse and a home visit by the Transitional Care Nurse when medically stable.
--- NOTE | 2025-04-14 10:55 | PTCARENOTE ---
assumed care of pt from previous shift RN, sinus rhythm on tele, cardene weaned off, angel and slick removed. Lungs diminished, pox 94% on 2L NC, coughing and deep breathing encouraged. +bs, NPO maintained pre procedure. Cooley draining spenser. CT w
red drainage. Surgical sites w glue intact. Right IJ cordis w KVO and insulin infusing, PIV flushes easily. Pt assisted OOB w minimal assist. Plan of care reviewed w the pt and his , questions encouraged.
[2025-04-14 12:06] LABS: Glucose - Point of Care 87 mg/dl (70-99)
--- NOTE | 2025-04-14 12:11 | PTCARENOTE ---
labs drawn and sent as ordered, VSS, weaned to RA, tolerating OOB.
[2025-04-14 12:40] LABS: Troponin I 0.377 ng/ml
--- NOTE | 2025-04-14 12:51 | PTCARENOTE ---
troponin result reported to CT ANASTACIA.
--- NOTE | 2025-04-14 13:53 | W.PN.INTV ---
Today's Communication / Plan
Recommendations
Continue postoperative care
For PCI later today
Analgesia
Colchicine started for possible pericarditis
No additional recommendation
Sign off
Assessment
-
65-year-old man with past medical history noted below. Admitted to the hospital for elective hybrid approach of his coronary artery disease. Robotic assisted coronary artery bypass and percutaneous intervention of the circumflex. Underwent
surgery 04/13/[address] aSlguero without complications. Transferred to the critical care unit for further care
Status post robotic assisted coronary artery bypass 04/13/2025-Dr. Salguero
-
Coronary artery disease
Cardiac catheterization 03/30/2025:. Left dominant circulation with a 40% lesion in the proximal LAD, 90% lesion in the middle LAD after D2, a 60% lesion in the distal circumflex before the origin of the left posterolateral branch and a 90% lesion
in the proximal margin of the RPDA.
2. Mild aortic valve stenosis
Echo 04/07/25: EF 60-65% Thickened bicuspid aortic valve. Mild aortic stenosis. Estimated pulmonary artery pressure of 20-25 mmHg.
Conditions present prior admission:
Thyroid nodules
Bicuspid aortic valve-mild
Chronic anxiety
Paroxysmal atrial fibrillation on anticoagulation
Seasonal allergies
Diabetes with neuropathy
Assessment and plan:
Postoperative day 1
Hemodynamically stable
Develop chest pain earlier today with EKG changes-possibly pericarditis.
CT surgery and cardiology had evaluated the patient
Continue analgesia
Colchicine started
Plans for PCI later today to address circumflex disease
Anemia noted-no evidence of acute bleeding
Follow H&H serially
Hemodynamics -stable. Off vasopressors.
Follow hemodynamics via arterial line and PA catheter.
Urinary output adequate
Renal function normal
Chest tube with no excessive drainage-no air leak.
Chest x-ray reviewed 04/14/2025: With no pneumothorax or fluid collections. Left chest tube in place. Mild left-sided interstitial changes. Stable.
Remain nothing by mouth
Head of the bed elevation
Glycemic control per protocol-insulin drip.
DVT prophylaxis when safe from the surgical perspective.
No additional critical care recommendations.
At this point I will sign off.
Subjective Dataa
Subjective Data
Date of Service:
Date of Service: April 14, 2025
Objective Data
Data Reviewed
Vital Signs / I&O / Oxygen:
Vital Signs
Temp Pulse Resp BP Pulse Ox
99 F 77 18 106/64 95
04/14/25 12:00 04/14/25 12:00 04/14/25 12:00 04/14/25 12:00 04/14/25 12:00
Intake and Output
04/13/25 04/14/25 04/15/25
06:59 06:59 06:59
Intake Total 1143.4 / 1143.4 181.5 / 181.5
Output Total 1725 / 1725 400 / 400
Balance -581.6 / -581.6 -218.5 / -218.5
SaO2 95
Nasal Cannula flow liters per 2
minute
Labs/Micro/Reports
Lab Data
04/14/25 02:52
04/14/25 02:52
[2025-04-14 14:00] LABS: Glucose - Point of Care 116 mg/dl (70-99)
[2025-04-14] MEDS: NOVOLOG FLEXPEN-MODERATE RESISTANCE SC (15:50)
[2025-04-14] MEDS: LIPITOR 40 MG PO (15:50)
--- NOTE | 2025-04-14 16:28 | PTCARENOTE ---
pt transferred to [facility]
[2025-04-14 17:18] LABS: ACT-LR - POC 355 Seconds (116-155)
--- NOTE | 2025-04-14 18:41 | PTCARENOTE ---
received pt s/p cardiac cath, VSS, sinus rhythm maintained on tele, pt denies CP. EKG completed. + radial pulse to left hand, TR band in place. Plan of care reviewed w the pt and his , questions encouraged.
[2025-04-14 19:26] LABS: Troponin I 1.100 ng/ml
[2025-04-14 19:31] LABS: Hepatitis C Antibody Negative (Negative)
--- NOTE | 2025-04-14 20:00 | PTCARENOTE ---
Assumed care of patient at 1900. Patient found resting in bed at time of assessment. Patient is Aox4, follows commands appropriately, moves all extremities. Lung sounds are clear and equal bilaterally, saO2 92% on RA. Heart sounds are audible, SR on
the monitor, +rub, no noticeable edema, normal palpable pulses. Active BS in all four quadrants, malloy remains in place draining clear yellow. Patient has L chest incision approx with surg adhesive LEGAL PROJECT MANAGER, L lateral chest puncturex3 approx with surg
adhesive LEGAL PROJECT MANAGER, and L wrist puncture with TR band. Patient has R IJ cordis receiving KVO. VSS. Call salinas within reach.
--- NOTE | 2025-04-14 21:25 | ITS.CL.PN ---
Property Loss Insurance Claim Adjuster - Procedure Note
Procedure
Procedure Note:
CARDIAC CATHETERIZATION REPORT
Date of Procedure: 04/14/2025
Referring: Dr. Babatunde Salguero MD
Indication: Complete revascularization status post robotic MIDCAB
PROCEDURE(S)
1. left heart catheterization
2. coronary angiography
3. bypass graft angiography
4. iFR LCx
5. IVUS LCx
6. PCI with CHARMAINE to LCx
ACCESS: 6F left radial artery (closure: radial band)
CATHETERS
1. 6F LEIA
2. 6F XB3.5 guide
MODERATE SEDATION: 60 minutes of moderate sedation was utilized. An independent clinical medical assistant was present to assist with and help manage the patient's level of consciousness and physiologic status.
HEMODYNAMIC DATA
LV 132/17 (EDP 29) mmHg
AO 113/71 (mean 89) mmHg
CORONARY ANGIOGRAPHY
Dominance: Left
LM: Large with minimal disease
LAD: Large vessel giving rise to a small D1 and small D2 with competitive flow seen in the distal vessel. There is a severe 90% stenosis before the takeoff of the D2.
LCx: Large dominant vessel giving rise to a moderate caliber OM1, moderate caliber OM 2, and moderate caliber LPDA. There is a focal 50% stenosis in the proximal vessel before OM1, a long segment of moderate disease in the mid vessel leading up to
the takeoff of OM 2, and a focal 90% stenosis in the distal vessel before the takeoff of the LPDA.
RCA: Not selectively imaged as known to be small and nondominant
Insert graft angiography
BYPASS GRAFT ANGIOGRAPHY:
PINO-LAD: the PINO is taken as a pedicle and forms an anastomosis with the mid-LAD. The PINO provides brisk flow to the apex and retrograde back to the proximal LAD where there is evidence of competitive flow. There is mild narrowing proximal and
distal to the touchdown site
iFR of LCx
The left main was engaged with a XB3.5 guide catheter. An Omni wire was flushed and zeroed outside the body and then advanced to the left main. The wire introducer was removed and the catheter flushed with saline, after which pressure of the wire
and guide were normalized. The wire was advanced to the distal circumflex and iFR recorded at 0.83. iFR pullback was performed noting focal improvement of IFR to 0.91 once proximal to the distal vessel stenosis with the remaining contribution from
the long segment of mid vessel disease and minimal contribution from the proximal vessel stenosis. On return to the left main, iFR appropriately normalized to ~1.0, confirming lack of wire drift.
PCI with CHARMAINE to LCx
Based on the above assessment with iFR, the decision was made to proceed with PCI of the distal circumflex stenosis and long segment mid circumflex stenosis. Additional heparin was given to achieve ACT greater than 300. Initial lesion preparation
was performed with a 2.5 mm semicompliant balloon. The distal circumflex was stented with a 2.5 x 18 mm [place] frontier drug-eluting stent. The mid vessel stenosis was stented with a 2.5 x 22 mm [place] frontier drug-eluting stent. Post dilation of both
stents was performed with a 2.5 mm noncompliant balloon taken to 16 mary ellen. Post dilation of the segment of the mid vessel stent proximal to the takeoff of OM2 was postdilated to high-pressure with a 3.25 mm NC balloon. IVUS was then performed and
demonstrated excellent stent sizing and apposition of the distal stent without evidence of dissection. The proximal stent was mildly undersized both distal and proximal to the OM2. Based on IVUS sizing, further post dilation was performed with a 3.0
mm NC balloon to high pressure in the distal aspect of the stent beyond the takeoff of OM2 followed by post dilation to 16 mary ellen in the proximal aspect of the stent proximal to the takeoff of OM2 with a 3.5 mm NC balloon taken to 16 mary ellen. Final
angiographic result was excellent. The wire and guide were removed and a TR band placed. The patient was loaded with 600 mg of Plavix.
RADIATION: dose 1730 mGy; DAP 91 Gy*cm2; fluoroscopy time 17.4 min
CONCLUSIONS
1. Coronary artery disease as described with obstructive disease in the mid and distal circumflex based on IFR assessment.
2. Bypass graft angiography with patent PINO to LAD.
3. Left heart cath demonstrates known mild aortic stenosis and moderately elevated LV filling pressures
4. Successful PCI with CHARMAINE to distal circumflex with a 2.5 x 18 mm Edwin frontier drug-eluting stent postdilated to high-pressure with a 2.5 mm NC balloon
5. Successful PCI with CHARMAINE to mid circumflex with a 2.5 x 22 mm Edwin frontier drug-eluting stent postdilated distally to high-pressure with a 3.0 mm NC balloon and proximally to high-pressure with a 3.5 mm NC balloon
RECOMMENDATIONS
1. Dual antiplatelet therapy with aspirin and Plavix for 1 year
2. Aggressive secondary prevention of coronary artery disease
Copy to: JEFRY Bauman (PCP)
Signed: Denzel Rutledge MD, PhD
[2025-04-14 22:09] LABS: Glucose - Point of Care 257 mg/dl (70-99)
[2025-04-14] MEDS: NOVOLOG FLEXPEN-MODERATE RESISTANCE 300 UNITS SC (22:35)
[2025-04-15] VITALS (8 sets, daily range): BP systolic 100–122; BP diastolic 59–72; PULSE 81; O2SAT 97–99; BMI 25.0
--- NOTE | 2025-04-15 | PTCARENOTE ---
Patient reassessed. VSS. No c/o pain. TR band removed at 2200 without incident. Cooley removed at 2130 patient with immediate small void in toilet. Call [place] within reach.
[2025-04-15 01:22] LABS: Troponin I 1.300 ng/ml
[2025-04-15 06:18] LABS: Hematocrit 38.9 % (39.0-52.0); Hemoglobin 13.7 g/dL (13.0-18.0); Mean Corp Hgb Conc. 35.2 g/dL (33.0-37.0); Mean Corpuscular Volume 89.6 fL (80.0-94.0); Platelet Count 220 10^3/uL (130-400); Red Cell Dist. Width 12.1 % (11.5-14.5)
[2025-04-15 06:35] LABS: Blood Urea Nitrogen 32 mg/dl (9-20); Calcium 8.6 mg/dl (8.4-10.2); Carbon Dioxide 26 mmol/L (22-30); Chloride 105 mmol/L (98-107); Estimated Creatinine Clearance 74 ml/min; Glucose 144 mg/dl (70-99); Magnesium 2.3 mg/dl (1.6-2.3); Potassium 4.7 mmol/L (3.5-5.1); Sodium 134 mmol/L (135-145); eGFR > 60.00
[2025-04-15] MEDS: TYLENOL 1000 MG PO (07:11)
--- NOTE | 2025-04-15 07:25 | W.PN.CT ---
Today's Communication / Plan
-
pod#2
- hemodynamically stable
- s/p CHARMAINE x2
- continue ASA/Plavix/Lipitor > may transition to Eliquis/Plavix due to hx PAF
- Metoprolol to Coreg for improved BP control -> d/c'd BB for soft BP
- 2LNC spo2 93%, wean as tolerates
- resume MFM when tolerating solids
- OOB as tolerates
- dispo planning
Assessment / Plan
-
Robotic assisted MIDCAB (single-vessel bypass PINO in situ to LAD), left atrial appendage exclusion (35mm clip)-Dr. Salguero 04/13/25-pod #2
1. Coronary artery disease involving the proximal LAD and LCx
2. Paroxysmal atrial fibrillation on chronic anticoagulation (Eliquis)
3. History of thyroid nodules
4. Arthritis
5. Diabetes (A1C 5.7)
6. ADHD (on Adderall)
- Acute postop respiratory insufficiency
- Acute post-op leukocytosis w/o [id number] due to infklammation
Discussed patient care with: Care Team
Subjective
Procedure
Robotic assisted MIDCAB (single-vessel bypass PINO in situ to LAD), left atrial appendage exclusion (35mm clip)-Dr. Salguero 04/13/25-pod #2
-
Date of Service: April 15, 2025
Objective Data
-
Lab Results
04/14/25 02:52
04/14/25 02:52
PT 16.0 Sec (11.4-14.6) H 04/13/25 11:00
INR 1.22 04/13/25 11:00
APTT 33.0 Sec (23.4-35.0) 04/13/25 11:00
Vital Signs
Vital Signs
Temp Pulse Resp BP Pulse Ox
98.8 F 90 18 130/71 92
04/14/25 19:00 04/14/25 20:00 04/14/25 18:45 04/14/25 19:02 04/14/25 19:00
CT Intake/Output/Weight
04/14/25 04/14/25 04/15/25
06:59 18:59 06:59
Intake Total 451.1 / 1143.4 211.5 / 221.5 10 / 221.5
Output Total 700 / 1725 520 / 835 315 / 835
Balance -248.9 / -581.6 -308.5 / -613.5 -305 / -613.5
SaO2: 92
Physical Exam
-
General: Awake, Oriented and AOx3
Cardiovascular: Regular rate & rhythm
Respiratory: Clear and Equal
Sternum: Stable
Incision: Clean, Dry and Intact
Extremities: Edema +1
Data Reviewed
-
Lab Results: Results Reviewed
Medications: Active Meds Reviewed
Chest X-Ray: Image Reviewed
Vital Signs / Labs
-
Vital Signs and Labs:
Temp Pulse Resp BP Pulse Ox
98.7 F 77 20 111/68 93
04/15/25 03:00 04/15/25 06:00 04/15/25 03:00 04/15/25 04:00 04/15/25 06:00
04/15/25 06:01
04/15/25 06:01
04/12/25 04/14/25 04/14/25
08:21 07:34 09:10
WBC
RBC
Hct
MCH
Sodium
BUN
Glucose
Troponin I
POC Glucose 142 H 108 H
POC ACT Low Range
Crossmatch IS Only See Detail
04/14/25 04/14/25 04/14/25
10:42 12:04 13:58
WBC
RBC
Hct
MCH
Sodium
BUN
Glucose
Troponin I 0.377 H* D
POC Glucose 126 H 116 H
POC ACT Low Range
Crossmatch IS Only
04/14/25 04/14/25 04/14/25
17:12 18:46 22:02
WBC
RBC
Hct
MCH
Sodium
BUN
Glucose
Troponin I 1.100 H* D
POC Glucose 257 H
POC ACT Low Range 355 H
Crossmatch IS Only
04/15/25 04/15/25
00:44 06:01
WBC 22.4 H
RBC 4.34 L
Hct 38.9 L
MCH 31.6 H
Sodium 134 L
BUN 32 H
Glucose 144 H
Troponin I 1.300 H*
POC Glucose
POC ACT Low Range
Crossmatch IS Only
[2025-04-15] MEDS: SENOKOT-S 1 TABLET PO (07:31)
[2025-04-15] MEDS: PLAQUENIL 200 MG PO (07:31)
[2025-04-15] MEDS: PROTONIX 40 MG PO (07:31)
[2025-04-15] MEDS: PACERONE 200 MG PO (07:32)
[2025-04-15] MEDS: PLAVIX 75 MG PO (07:32)
[2025-04-15] MEDS: COLCHICINE 0.3 MG PO (07:32)
[2025-04-15] MEDS: NEURONTIN 100 MG PO (07:33)
[2025-04-15] MEDS: MAGNESIUM OXIDE 500 MG PO (07:34)
[2025-04-15] MEDS: LOW STRENGTH ASPIRIN 81 MG PO (07:34)
[2025-04-15] MEDS: BACTROBAN 2% OINTMENT 1 APPLIC NASAL (07:35)
--- NOTE | 2025-04-15 07:45 | PTCARENOTE ---
Patient reassessed. VSS. No c/o pain. AM labs obtained. AM hygiene care provided. OOB to chair without incident.
[2025-04-15 08:35] LABS: Glucose - Point of Care 201 mg/dl (70-99)
[2025-04-15] MEDS: NOVOLOG FLEXPEN-MODERATE RESISTANCE 3 UNITS SC (08:35)
[2025-04-15] MEDS: LASIX 20 MG IV (09:27)
--- NOTE | 2025-04-15 09:54 | PTCARENOTE ---
20 IV lasix given. pleural chest tube d/cd per order
--- NOTE | 2025-04-15 10:02 | PTCARENOTE ---
assumed care of patient @ 0700. received pt sitting in chair, aox3. VSS on RA. NSR on tele with rub, good pulses no edema. lungs clear on room air satting mid 90s, L pleural chest tube to wall suction no issues. voiding clear na, +BS. Surgical
sites CDI, DIRECTOR OF SOLUTIONS ARCHITECTURE. R IJ cordis and PIV both patent. pt resting comfortably in chair with call salinas within reach .
[2025-04-15 12:11] LABS: Glucose - Point of Care 309 mg/dl (70-99)
[2025-04-15] MEDS: NOVOLOG FLEXPEN-MODERATE RESISTANCE 300 UNITS SC (12:11)
--- NOTE | 2025-04-15 12:16 | CM ---
Reviewed chart. Met with and Mrs. Ortiz to review discharge plans. He states he is feeling well and maybe able to go home soon. He states he has ambulated in the hallway and did the stairs. We reviewed a home visit by the Transitional Care
Nurse. He is agreeable to a home visit. Prior to admission he resides with his spouse in a two story home with one step to enter. He has a full flight of steps to get to bedroom/full bathroom. He has a powder room on the first floor. Prior to
admission he was independent with ambulation and adls. He does not have any DME in the home. He has a prescription plan. His spouse will be home to assist in his care if needed. Medical work-up in progress. The discharge plan is to return home
with his spouse and a home visit by the Transitional Care Nurse when medically stable.
--- NOTE | 2025-04-15 12:59 | W.DCSUMMARY ---
Discharge Summary
Discharge Data
Date of Admission: 04/13/25
Date of Discharge: 04/15/25
-
Pending Results: No
Hospital Course
Primary care physician: Dr. Brennan Ortiz
Outpatient director telehealth: Dr. Willie Trinidad
Inpatient consultants: [facility]
Procedures:
1. MIDCAB (PINO-LAD) with eLAA (#35 mm) on 04/13/[address] Babatunde Salguero
2. [facility] with CHARMAINE x 2 (distal Circ & Mid Circ on 04/14/[address] Denzel Rutledge
Primary Diagnosis:
1. Coronary Artery Disease
Secondary Diagnoses:
1. Bicuspid aortic valve with mild
2. 2 diabetes mellitus
3. Paroxysmal A-fib on Eliquis
4. Hypertension
5. Hyperlipidemia
6. Rheumatoid arthritis
7. Anxiety
8. Excision skull osteoma (2012)
HPI: Mr. Brennan Ortiz is a 64-year-old male who presented for outpatient consultation for his coronary artery disease and bicuspid aortic valve with Dr. Babatunde Salguero. Prior to his consultation he underwent a left heart cath on 03/30/2025 which
demonstrated a left dominant circulation with 40% lesion of proximal LAD followed by 90% lesion in the proximal to mid LAD with 60% lesion in distal circumflex. Prior TTE in 2019 showed questionable bicuspid AV with AV mean gradient of 9, normal
biventricular size and function with an LVEF of 60 to 65% and mild LVH. He was recommended for robotic MIDCAB with Dr. Babatunde Salguero and subsequent PCI with Denzel Short.
Hospital course: Mr. Brennan Ortiz is a 64-year-old male with a past medical history of CAD and bicuspid AV with mild who underwent outpatient consultation following an abnormal left heart cath. On 04/13/2025, patient underwent Robotic-assisted
MIDCAB X 1 (PINO to LAD) with exclusion of left atrial appendage with Dr. Salguero. Please see surgeons record for complete dictation of surgery. Postoperatively, he was extubated within the operating room with plan for left heart cath on postop day
1 for intervention to circumflex with Dr. Short. Cardiology was consulted for assistance in postoperative care. Initially following surgery he was hypertensive in which he was maintained hemodynamically stable on a Cardene drip. On the morning
of postop day 1, his EKG showed ST elevation in lateral leads with a pericardial rub on physical assessment. He denied chest discomfort to suggest angina at that time. A TTE was obtained which showed normal LV function and no wall motion
abnormality. His EKG changes were suspected to be attributed to mild postoperative pericarditis in which he was briefly started on colchicine 0.3 mg daily. He underwent a planned left heart cath with Dr. Short in which 2 drug-eluting stents were
placed to the distal and mid circumflex via the left radial artery. On postoperative day 2,During he underwent a left heart cath He was tolerating his diet, ambulating, and hemodynamically stable for discharge. He is morning lab work showed
leukocytosis without pyrexia which was suspected to be attributed to inflammation. His chest tube, central line, and indwelling urinary catheter were removed without issue. He obtained a routine 2 view postoperative chest x-ray which did not show
significant atelectasis or pleural effusion.His routine home medications were restarted as able. His metformin was placed on hold for 48 hours following his cardiac catheterization with instruction on when to resume as outpatient. He was sent home
with long-term plan to continue Plavix 75 mg daily for 1 year and continue Eliquis 5 mg twice a day for known history of PAF. His postoperative pain was managed with wbxtaf-[id number] Tylenol, oxycodone 5 mg as needed, and Flexeril 5 mg as needed.
He was 83.6 kg at time of discharge with preoperative weight of 83.6. He was discharged home with plan to follow-up with the cardiac surgery office in 2-4 weeks following surgery. He was scheduled for outpatient cardiology follow-up. The
transitional care nursing team will follow-up with patient in 2 to 3 days following discharge.
Home medication changes:
- See medication list provided below.
Discharge Plan
-
Patient Disposition: Home (Routine Discharge)
Discharge Diagnosis/Procedures: MIDCAB x 1 (PINO-LAD) & left atrial appendage clip (04/13/25) with Dr. Salguero, Angioplasty with stent to LCx x2 (04/14/25) with Dr. Rutledge
Condition: Good
Diet: Low Cholesterol and Low Sodium
Activity: No strenuous activity
Driving Restrictions: No driving for 2 weeks
Bathing Restrictions: OK to Shower
Blood Work: Repeat BMP in 1-week to assess electrolytes with diuretic use.
Other Services: Cardiac Rehab
Specialty Instructions: Weigh Daily- Call MD for wt gain/loss 3 lbs overnight/5 lbs in 1 week
Activity Restrictions/Additional Instructions:
ACTIVITY:
-No strenuous activity: no heavy lifting, pushing, pulling anything over 15 pounds for two-weeks.
-continue to use stairs as tolerated
DRIVING RESTRICTIONS:
-No driving for two-weeks or until approved by your surgeon
WOUND CARE:
-Shower daily. Use soap & water.
-No lotions, creams or powders on incision area.
DIET:
-continue a low fat/low cholesterol diet.
-If you are diabetic, continue carb controlled diet.
CARDIAC REHAB:
-Please make appointment to start in 5-6 weeks with your local hospital program. (See Cardiac Rehabilitation Discharge Booklet).
SPECIALTY INSTRUCTIONS:
-Weigh yourself daily. Call your physician for any weight gain/loss of 3 lbs overnight or 5 lbs in one week.
-If you smoke, you are instructed to quit. The [place] smoking hotline phone number is [phone]
Stand Alone Forms: DC Instructions- Cath/EP Lab
Referrals:
CT Transitional Care Nurse [Outside] - in one to two days
Referral Note:
The Cardiothoracic Transitional Care Nurse will call you to set up a visit in 1-2 days.
[facility] [Outside] - 05/13/25 8:30 am
Referral Note: Cardiac Rehab Orientation appointment is on May 13 at 8:30am.
The Cardiac Rehab gym is located on the first floor of the [facility].
Shi Rey CRNP [Specified Professional Personl, Cardiology] - 05/11/25 1:40 pm
Pily Howell CRNP [Family Provider, Family Practice] - in four to six weeks
Referral Note: Please make an appointment in four to six weeks.
Constanza Burch CRNP [Specified Professional Personl, Cardiac Surgery] - 04/27/25 11:00 am
Prescriptions:
New
sennosides-docusate sodium 8.6-50 mg Tablet
1 tab PO [id number] PRN (Reason: Constipation) Qty: 0 0RF
acetaminophen 325 mg Tablet
650 mg PO Q6HPRN PRN (Reason: mild pain,headache,temp >101F ) Qty: 0 0RF
clopidogrel 75 mg Tablet
75 mg PO DAILY 60 Days Qty: 60 0RF
Rx Instructions:
To continue for 1-year. Re-fills to be obtained by director telehealth.
cyclobenzaprine 10 mg Tablet
5 mg PO Q8HPRN PRN (Reason: muscle spasm) Qty: 10 0RF
oxycodone 5 mg Tablet
2.5 - 5 mg PO Q6HPRN PRN (Reason: moderate pain) Qty: 10 0RF
Continued
metoprolol succinate [Toprol XL] 25 mg tablet extended release 24 hr
12.5 mg PO QPM
hydroxychloroquine 200 mg Tablet
200 mg PO BID
zolpidem 12.5 mg tablet,ext release multiphase
12.5 mg PO PRN PRN (Reason: Insomnia)
atorvastatin 40 mg tablet
40 mg PO QPM Qty: 90 10RF
dextroamphetamine-amphetamine [Adderall] 20 mg Tablet
20 mg PO DAILY Qty: 0 0RF
Eliquis 5 mg tablet
5 mg PO BID
metformin 500 mg Tablet
500 mg PO DAILY Qty: 0 0RF
Rx Instructions:
Continue on 04/17/25
metformin 500 mg Tablet
1,000 mg PO HS Qty: 0 0RF
Rx Instructions:
Resume on 04/17/25
furosemide [Lasix] 40 mg tablet
40 mg PO DAILY 4 Days Qty: 0 0RF
Discontinued
aspirin 81 mg Tablet
81 mg PO DAILY
isosorbide mononitrate 30 mg tablet extended release 24 hr
30 mg PO DAILY
Discharge Orders:
Discharge Patient (As Directed); Ordered 04/15/25
Ordered By: Mary Kay Kurtz
Care Plan Goals
Care Plan Goals:
Problem: Readiness for enhanced knowledge related to diagnosis and treatment plan
Goal: Understand your diagnosis and treatment plan needs, including medications if applicable.
Instructions: Know your diagnosis, underlying causes and treatment plan options, including medications if applicable. Consult with your health care team to learn about your diagnosis and treatment plan, including medications if applicable.
Discharge Date and Time
Print Language: SERBIAN
--- NOTE | 2025-04-15 13:58 | PTCARENOTE ---
cordis d/cd per order
--- NOTE | 2025-04-15 15:54 | PTCARENOTE ---
pt showered, new dressings applied to chest tube site and neck. discharge instructions given to patient with teachback. pt d/cd home via wheelchair
[2025-04-18 08:39] LABS: ACT-LR - POC > 397 Seconds (116-155)
== END 2025-04-15 15:54 | disposition home or self-care (01) | DRG 232 ==
LOC: CVICU 05:08
PROVIDERS: Nurse Practitioner; Physician Assistant Surgical; Student in an Organized Health Care Education/Training Program; ADMITTING PHYSICIAN Thoracic Surgery (Cardiothoracic Vascular Surgery); CONSULT PHYSICIAN Internal Medicine Critical Care Medicine; FAMILY PHYSICIAN Nurse Practitioner Family
PROC: 02L70CK Occlusion of Left Atrial Appendage with Extraluminal Device, Open Approach (ICD-10-PCS; 2025-04-13)
PROC: 02100Z9 Bypass Coronary Artery, One Artery from Left Internal Mammary, Open Approach (ICD-10-PCS; 2025-04-13)
PROC: B24BZZ4 Ultrasonography of Heart with Aorta, Transesophageal (ICD-10-PCS; 2025-04-13)
PROC: 8E0W0CZ Robotic Assisted Procedure of Trunk Region, Open Approach (ICD-10-PCS; 2025-04-13)
PROC: B2111ZZ Fluoroscopy of Multiple Coronary Arteries using Low Osmolar Contrast (ICD-10-PCS; 2025-04-14)
PROC: 027035Z Dilation of Coronary Artery, One Artery with Two Drug-eluting Intraluminal Devices, Percutaneous Approach (ICD-10-PCS; 2025-04-14)
PROC: B240ZZ3 Ultrasonography of Single Coronary Artery, Intravascular (ICD-10-PCS; 2025-04-14)
PROC: B2151ZZ Fluoroscopy of Left Heart using Low Osmolar Contrast (ICD-10-PCS; 2025-04-14)
PROC: 4A023N7 Measurement of Cardiac Sampling and Pressure, Left Heart, Percutaneous Approach (ICD-10-PCS; 2025-04-14)
PROC: B2181ZZ Fluoroscopy of Left Internal Mammary Bypass Graft using Low Osmolar Contrast (ICD-10-PCS; 2025-04-14)
DX: I25.10 Atherosclerotic heart disease of native coronary artery without angina pectoris (principal); I48.0 Paroxysmal atrial fibrillation; E04.2 Nontoxic multinodular goiter; E11.40 Type 2 diabetes mellitus with diabetic neuropathy, unspecified; Q23.81 Bicuspid aortic valve; J30.2 Other seasonal allergic rhinitis; F41.9 Anxiety disorder, unspecified; M06.9 Rheumatoid arthritis, unspecified; E78.5 Hyperlipidemia, unspecified; I10 Essential (primary) hypertension; F90.9 Attention-deficit hyperactivity disorder, unspecified type; R06.89 Other abnormalities of breathing; D64.9 Anemia, unspecified; D72.829 Elevated white blood cell count, unspecified; Z79.01 Long term (current) use of anticoagulants; Z79.82 Long term (current) use of aspirin; Z79.84 Long term (current) use of oral hypoglycemic drugs; Z79.899 Other long term (current) drug therapy
CPT/HCPCS: 36415; 71045; 71046; 71275; 80048; 80053; 81003; 81015; 82248; 82330; 82565; 82805; 82947; 82962; 83036; 83735; 84132; 84302; 84484; 84520; 85014; 85018; 85025; 85027; 85049; 85610; 85730; 86803; 86850; 86900; 86901; 86920; 87070; 93005; 93306; 93308; 93880; J2916; Q9967

== ENCOUNTER 2025-04-16 22:16 | Observation (INO) | payer BC, SELFPAY ==
[2025-04-16] VITALS (21 sets, daily range): BP systolic 98–126; BP diastolic 67–110; BMI 24.9; BMI 24.4
[2025-04-16 20:09] LABS: Hematocrit 42.4 % (39.0-52.0); Hemoglobin 14.9 g/dL (13.0-18.0); Mean Corp Hgb Conc. 35.1 g/dL (33.0-37.0); Mean Corpuscular Volume 90.0 fL (80.0-94.0); Nucleated Red Blood Cells % 0 % (-); Platelet Count 268 10^3/uL (130-400); Red Cell Dist. Width 11.9 % (11.5-14.5)
[2025-04-16] MEDS: ELIQUIS 5 MG PO (20:15)
[2025-04-16 20:18] LABS: INR 1.36; PT 17.0 Sec (11.4-14.6)
[2025-04-16] MEDS: NSS 250 IV (20:19)
[2025-04-16] MEDS: CARDIZEM 125 IV (20:24)
[2025-04-16 20:30] LABS: ALT (SGPT) 14 U/L (0-50); AST (SGOT) 24 U/L (17-59); Albumin 3.9 g/dl (3.5-5.0); Alkaline Phosphatase 51 U/L (38-126); Blood Urea Nitrogen 27 mg/dl (9-20); Calcium 9.1 mg/dl (8.4-10.2); Carbon Dioxide 26 mmol/L (22-30); Chloride 101 mmol/L (98-107); Estimated Creatinine Clearance 63 ml/min; Glucose 142 mg/dl (70-99); Magnesium 1.9 mg/dl (1.6-2.3); Potassium 4.0 mmol/L (3.5-5.1); Sodium 136 mmol/L (135-145); Total Protein 6.3 g/dl (6.3-8.2); eGFR > 60.00
--- NOTE | 2025-04-16 20:31 | ED.GENMED ---
History of Present Illness
General
Chief Complaint: Heart Rate Problem
Source: patient
Exam Limitations: none
Time Seen by Provider: 04/16/25 19:59
Nursing documentation reviewed up to this point in time: agreed with
History of Present Illness
History of Present Illness:
Patient status post robotic cardiac procedure, i.e. CABG and PCI, discharged home yesterday afternoon, presents to ED secondary to sudden onset of chest palpitations along with lightheadedness, while he was at home this evening. Patient spoke with
on-call desktop operator who recommended patient come to ED for an evaluation. Patient denies chest pain or shortness of breath. Denies fever or chills. Denies nausea or vomiting. Patient reports feeling well all day. Patient is currently on
Eliquis and Plavix, for surgery. Patient also has been recommended to take Lasix for next 4 days upon discharge.
Past History
Past History
ED Past Medical History: None
ED Past Surgical History: None
Social History
Tobacco: Non-smoker
Review of Systems
Review of Systems
Allergies reviewed?: Yes
Constitutional: Reports no symptoms
Respiratory: Reports no symptoms; Denies trouble breathing
Cardiac: Reports palpitations; Denies chest pain or syncope
ABD/GI: Reports no symptoms; Denies nausea or vomiting
Musculoskeletal: Reports no symptoms
Skin: Reports no symptoms
Neurological: Reports no symptoms
Phy Exam
Physical Exam
Physical Exam:
Physical Exam
General: mild distress, not acutely ill. afebrile
Head: nc/at. eomi
Neck: supple. no meningeal signs.
Heart: irregular irregular. tachycardic.
Lungs: no acute respiratory distress. clear bilaterally
Abdomen: normal bowel sounds. not tender.
Neuro: alert and oriented x 3. no focal neurological deficits
Skin: no rash
Psychiatric: well kept. interactive and cooperative
Extremities: no edema. no calf tenderness.
Course
Orders/Labs/Results
Orders:
Orders
04/16/25 19:36
ECG [Electrocardiogram (*1)] Urgent
Reason for Study: Tachycardia
EKG- Treatment ONCE
04/16/25 19:59
Complete Blood Count/With Diff Urgent
Comprehensive Metabolic Panel Urgent
Magnesium Urgent
Comment: ADD ON
NT-proBNP Urgent
Comment: ADD ON
PT/INR [Prothrombin Time] Urgent
TSH Urgent
Comment: ADD ON
Troponin I Urgent
04/16/25 20:07
0.9% Sodium Chloride 250 ml [Nss] 250 ml IV BOLUS
04/16/25 20:10
Apixaban [Eliquis] 5 mg PO NOW STA
04/16/25 20:11
Add On- LAB Urgent
Tests Added?: TSH, ProBNP, Magnesium
04/16/25 20:15
Diltiazem 125 mg/125 ml Nss [Cardizem] 125 mg in 125 ml IV PER PROTOCOL
Initial dose in mg/hr, then titrate:: 5
Titrate to keep:: Heart rate 80-100 bpm
Titrate by mg/hr:: 5 mg/hr
Frequency of titrations (minutes):: 15
Maximum dose in mg/hr:: 15
04/16/25 20:29
Amiodarone [Cordarone] 150 mg Dextrose 5%/Water 100 ml [D5w] 100 ml IV NOW
04/16/25 20:30
Amiodarone [Cordarone] 900 mg DEXTROSE 5% PVC-free BAG [D5W PVC-free BAG] 500 ml IV PER PROTOCOL
Initial Dose in mg/min:: 1
Duration of initial dose (hours):: 6
Subsequent dose in mg/min:: 0.5
Duration of subsequent dose (hours):: 18
Maximum dose in mg/min:: 1
Hold and notify provider if:: Heart rate < 60 BPM or SBP < 90 mmHg or MAP < 60 mmHg
Diltiazem 125 mg/125 ml Nss [Cardizem] 125 mg in 125 ml IV PER PROTOCOL
Initial dose in mg/hr, then titrate:: 5
Titrate to keep:: Heart rate 80-100 bpm
Titrate by mg/hr:: 5 mg/hr
Frequency of titrations (minutes):: 15
Maximum dose in mg/hr:: 15
04/16/25 20:32
Amiodarone [Cordarone] 150 mg Dextrose 5%/Water 100 ml [D5w] 100 ml IV NOW
04/16/25 20:45
Amiodarone [Cordarone] 900 mg DEXTROSE 5% PVC-free BAG [D5W PVC-free BAG] 500 ml IV PER PROTOCOL
Initial Dose in mg/min:: 1
Duration of initial dose (hours):: 6
Subsequent dose in mg/min:: 0.5
Duration of subsequent dose (hours):: 18
Maximum dose in mg/min:: 1
Hold and notify provider if:: Heart rate < 60 BPM or SBP < 90 mmHg or MAP < 60 mmHg
04/16/25 21:34
Admit Patient As Directed
Co-Sign Provider:
Level of Care: Observation services
Assign to:: IVU
Physician / Group: CT surgery
Diagnosis: Atrial fibrillation with rapid ventricular response
Patient Condition: Fair
Expected length of stay greater than two midnights?: No
Code Status As Directed
Resuscitation Status: Full Code
VTE Contraindication Routine
VTE Mechanical Device Contraindication: Medical Contraindication
Pharmocologic Contraindication: Medical Contraindication
Bisacodyl [Dulcolax] 10 mg RECTAL [id number] PRN
Polyethylene Glycol Powder [Miralax] 17 grams PO DAILYPRN PRN
Intake/ Output As Directed
Frequency: Per unit guidelines
Notify MD As Directed
Notify physician if: SBP < 90 mmHg or MAP < 65 mmHg
HR sustains > 160 BPM
Weight As Directed
Frequency: Daily
Pulse Ox/spot Check [RESP] Routine
Quantity: 1
Rx Incentive Spirometry [RESP] Routine
Frequency: q1h while awake
04/16/25 21:35
Activity As Directed
Activity Level: As Tolerated
Vital Signs As Directed
Frequency: Per unit guidelines
04/16/25 21:36
PRN Pain Medication Management As Directed
May give lesser potent ordered pain med per pt: Yes
preference::
Protocol:: Medication orders for pain may be administered in a
manner that supports deferring to patient preference
when the pt is:
- Requesting an ordered lesser potent pain medication.
Least to most potent pain medications are defined
as: acetaminophen < NSAID < tramadol < opioids
(morphine, oxycodone, hydromorphone).
- Requesting a lesser dose of the same medication IF
ORDERED.
- Requesting a less intrusive route of administration
if both routes are prescribed by the provider (PO <
IV).
04/16/25 21:40
Acetaminophen [Tylenol] 650 mg PO Q4HPRN PRN
04/16/25 21:42
Cyclobenzaprine HCl [Flexeril] 5 mg PO Q8HPRN PRN muscle spasm
Docusate W/Senna [Senokot-S] 1 tablet PO [id number] PRN Constipation
zolpidem 12.5 mg PO PRN PRN
04/16/25 21:47
Oxycodone [Roxicodone] 2.5 mg PO Q4HPRN PRN
Oxycodone [Roxicodone] 5 mg PO Q4HPRN PRN
04/16/25 21:55
Magnesium Sulfate 2 Gram/50 ml [Magnesium Sulfate] 2 gram in 50 ml IV NOW
04/16/25 22:00
METFORMIN HCl [Glucophage] 1,000 mg PO HS
04/16/25 22:12
Zolpidem Tartrate [Ambien] 10 mg PO HSPRN PRN
04/17/25 06:00
Electrocardiogram (*1) IN AM
Reason for Study: Tachycardia
Cholesterol Lowering
At Your Request: Full Participation
Does patient need a safe tray?: No
Cholesterol Lowering: Sodium, 2 Gram
Basic Metabolic Panel IN AM
Magnesium IN AM
04/17/25 08:00
Apixaban [Eliquis] 5 mg PO BID
Clopidogrel Bisulfate [Plavix] 75 mg PO DAILY
Hydroxychloroquine [Plaquenil] 200 mg PO BID
METFORMIN HCl [Glucophage] 500 mg PO DAILY
dextroamphetamine-amphetamine [Adderall] 20 mg PO DAILY
04/17/25 18:00
Atorvastatin [Lipitor] 40 mg PO QPM
Abnormal Lab Results
04/16/25
19:59
WBC 16.9 H 10^3/uL
(4.8-10.8)
MCH 31.6 H pg
(27.0-31.0)
Abs Immat Gran (auto) 0.1 H 10^3/uL
(0-0.05)
Absolute Neuts (auto) 13.1 H 10^3/uL
(1.4-6.5)
Absolute Monos (auto) 1.4 H 10^3/uL
(0.1-0.6)
Neutrophils % 77.2 H %
(42.2-75.2)
Lymphocytes % 12.5 L %
(20.5-51.1)
PT 17.0 H Sec
(11.4-14.6)
BUN 27 H mg/dl
(9-20)
Glucose 142 H mg/dl
(70-99)
Troponin I 0.771 H* ng/ml
TSH 4.71 H uIU/ml
(0.47-4.68)
04/16/25 19:59
04/16/25 19:59
Vital Signs
Initial and Last Documented VS:
Initial Vital Signs
Temp Pulse Resp BP Pulse Ox
97.8 F 134 24 120/84 97
04/16/25 19:39 04/16/25 19:39 04/16/25 19:39 04/16/25 19:39 04/16/25 19:39
Last Documented Vital Signs
Temp Pulse Resp BP Pulse Ox
99.0 F 121 20 103/72 95
04/16/25 23:39 04/17/25 00:00 04/16/25 23:39 04/16/25 23:36 04/17/25 01:00
MDM/Problems Addressed
MDM/Problems Addressed:
History and exam consistent with rapid atrial fibrillation. Patient started initially on Cardizem infusion after bolus of IV fluids. However, after speaking with Dr. Ceron, cardiology, patient will be switched to amiodarone protocol.
Patient evaluated in ED by CT surgery nurse practitioner who will admit patient under Dr. Salguero service.
Critical care statement: A total of 40 minutes of critical care time was provided for this patient. This includes management of unstable vital signs, evaluation of the patient at bedside, reviewing the patient's pertinent medical records, discussion
with consultants, review of old EKGs and review of pertinent medical records. This time with separate from time utilized to perform the aforementioned documented procedures
*Pulse Oximetry
SaO2: 95
Oxygen Mode of Delivery: Room air
Patient hypoxic: no
*EKG
Interpreted by ED Provider?: Yes
EKG Intrepretation Date: 04/16/25
Heart Rate: 160
Rate: tachycardiac
Rhythm: a-fib
[place]: normal axis
Interval: normal interval
*Critical Care Note
Total Time (30-74mins, 75-104mins- exclusive of procedures): 40 min
ED Attending Note
-
Portions of this chart may have been created with voice recognition software.� Occasional wrong word or��sound alike� substitutions may have occurred due to the inherent limitations of voice recognition software.
Discharge Plan
Departure
Patient Disposition: Admit
Date of Disposition: 04/16/25
Time of Disposition: 21:37
Admit to: IVU
Presentation/result/management discussed w/ accepting MD/DO:
Discharge Problem:
Atrial fibrillation, rapid
Interventions
Interventions:
*Risk Screen - Suicide Last Done: 04/16/25 19:39
*General Assessment Last Done: 04/16/25 19:48
*Neglect/Abuse Screening Last Done: 04/16/25 19:39
*ED- Fall Risk Assessment Last Done: 04/16/25 19:48
*ED COVID-19 Vaccine History Last Done: 04/16/25 23:46
*Nursing Disposition Last Done: 04/16/25 23:03
ED- Cardiac Assessment Last Done: 04/16/25 21:25
ED- Pulmonary Assessment Last Done: 04/16/25 21:25
Discharge Date and Time
Discharge Date/Time: 04/16/25 23:03
--- NOTE | 2025-04-16 20:31 | EDRN ---
Per Dr. Britton stop the Diltiazem gtt. Pharmacy called for Amiodarone gtt and bolus. Cardiac Surgery [employer] at bedside along with .
[2025-04-16 20:46] LABS: Troponin I 0.771 ng/ml
[2025-04-16] MEDS: CORDARONE 103 MG IV (20:55)
[2025-04-16 21:07] LABS: TSH 4.71 uIU/ml (0.47-4.68)
[2025-04-16] MEDS: CORDARONE 518 MG IV (21:09)
--- NOTE | 2025-04-16 21:29 | EDRN ---
Pt says he had open heart surgery followed by 2 stents placed earlier this week. Pt discharged home yesterday and was doing well until approximately 1600 today when he felt lightheaded. Pt checked his HR and it was in 140-150's. [employer] was
called and instructed pt to come to the ED for evaluation. Pt denies new chest pain, has some discomfort from surgical site but it is not worse. Hurts to take a deep breath. No sob, abd pain, n/v, fever/chills/cough, weakness, palpitations. Pt
says he is unable to feel his heart beating rapidly.
--- NOTE | 2025-04-16 21:55 | HPS.HSE ---
Family Physician
-
Family Physician: JEFRY Noel
Chief Complaint
-
Palpitations and weakness
History of Present Illness
This is a very pleasant 65 year old male with a history of paroxysmal atrial fibrillation maintained on apixaban, hypertension, hyperlipidemia, bicuspid aortic valve with mild (peak/mean 25/14 mmHg) and recent admission for a robotic assisted
MIDCAB x1 (PINO-LAD) with eLAA (#35 mm) on 04/13/[address] Babatunde Salguero and a C with CHARMAINE x 2 (distal Circ & Mid Circ on 04/14/25) with Dr. Denzel Rutledge, who is now postop day #3 and presented to the emergency department with his for atrial
fibrillation with rapid ventricular response. He was discharged on 04/15/2025 and a discharge weight of 83.6 kg and plan to follow-up with cardiac surgery office in 2 to 4 weeks and with cardiology. Today he reported feeling increasingly weak and
tired. The symptoms were persistent and aggravated by movement, alleviated with rest. His watch has a heart monitor on it and he was alerted that he was in a rapid heart rate. He reported associated palpitations and dizziness/orthostasis while
standing. He denies any chest pain, pressure, discomfort that is new compared to his postoperative pain. He denies any fever, chills, cough or congestion. He denies any dependent edema or shortness of breath. He called his outpatient
underwriting service representative who had recommended he take a blood pressure at home which was reported to be in the 90 systolic range and subsequently presented to the emergency department. His EKG on arrival confirmed he was in atrial fibrillation with rapid
ventricular response up to 160s. He was initially started on a Cardizem infusion however after further discussion he was changed to IV amiodarone bolus and drip. At the time of my assessment the patient reports ongoing palpitations but otherwise
ROS as above.
Medical History
Past Medical History
Past Medical History: Reports Other
Additional Past Medical History:
paroxysmal atrial fibrillation maintained on apixaban, hypertension, hyperlipidemia, bicuspid aortic valve with mild (peak/mean 25/14 mmHg), Thyroid nodules, chronic anxiety, cervical radiculopathy, arthritis, neuropathy, diabetes
Past Surgical History: Reports Other
Additional Past Surgical History:
robotic assisted MIDCAB x1 (PINO-LAD) with eLAA (#35 mm) on 04/13/[address] Babatunde Salguero and a [facility] with CHARMAINE x 2 (distal Circ & Mid Circ on 04/14/25) with Dr. Denzel Rutledge, Sinus surgery in 2004, excision of osteoma of skull 2012
Social History
Tobacco: Non-smoker
Alcohol: Occasional
Drug: None
Personal:
Living: With Family
Employment: Retired
Family History
Family History: Not pertinent
Allergies / Home Medications
Allergies reflects when Allergies were last updated in [facility].
Home Medications with original date entered in [facility]
Allergy/Medication List:
reviewed
Review of Systems
-
History Source: Patient
A 12 point ROS was completed and negative except as noted: Yes
Physical Exam
Vital Signs
Vital Signs
Temp Pulse Resp BP Pulse Ox
97.8 F 139 21 115/85 95
04/16/25 19:39 04/16/25 21:30 04/16/25 21:30 04/16/25 21:30 04/16/25 21:30
Physical Exam
General: Well Developed, Well Nourished, Conversant and Appears in Distress
HEENT: NormoCephalic, Anicteric, Moist mucous membranes and Neck Nontender
Respiratory: Clear and Non Labored Respirations
Cardiac: Irregular Rhythm and Tachycardia
GI: Soft, Non Tender, Non Distended and Normal Bowel Sounds
Musculoskeletal: No Clubbing, No Cyanosis, No Edema and Other (Surgical site over left chest without purulent drainage, expected ecchymotic changes)
Skin: Warm and Dry
Neuro: Awake, Alert, Oriented, AO x 3 and Nonfocal/grossly intact
Hematologic/Lymphatic: No Lymphadenopathy
Psych: Calm and Intact Judgment/Insight
Laboratory Results
-
04/16/25 19:59
04/16/25 19:59
Laboratory Results
PT 17.0 Sec (11.4-14.6) H 04/16/25 19:59
INR 1.36 04/16/25 19:59
Total Bilirubin 0.9 mg/dl (0.2-1.3) 04/16/25 19:59
AST 24 U/L (17-59) 04/16/25 19:59
ALT 14 U/L (0-50) 04/16/25 19:59
Alkaline Phosphatase 51 U/L (38-126) 04/16/25 19:59
Troponin I 0.771 ng/ml H* 04/16/25 19:59
Data Reviewed
-
Lab Data: Labs Reviewed by me
Impression/Plan
-
IMPRESSION:
Brennan Ortiz is a 65 year old male with a history of paroxysmal atrial fibrillation maintained on apixaban and recent admission for a robotic assisted MIDCAB x1 (PINO-LAD) with eLAA (#35 mm) on 04/13/[address] Babatunde Salguero and a C with CHARMAINE x 2
(distal Circ & Mid Circ on 04/14/25) with Dr. Denzel Rutledge, who is postop day #3 and presented to the emergency department for atrial fibrillation with rapid ventricular response now on IV amiodarone.
PLAN:
# Atrial fibrillation with rapid ventricular response
# Dizziness
# Palpitations
# Acute hypotension
# CAD s/p robotic assisted MIDCAB x1 (PINO-LAD) with eLAA (#35 mm) and [facility] with CHARMAINE x 2 (distal Circ & Mid Circ) on 04/14/25) now POD #3
# Hx Paroxysmal atrial fibrillation maintained on apixaban
-Continue on amiodarone infusion per protocol, obtain EKG tomorrow morning
-Attempt to initiate beta-per if blood pressure allows, for now holding standing Toprol XL
-Give IV mag now, repeat BMP/Mg in AM
-Ideally he will convert to sinus with medical management. If he remains in atrial fibrillation he may require cardioversion on Friday.
-Continue Eliquis and Plavix
-Multimodal post op pain management
# Hx HTN
# Hx HLD
-Continue atorvastatin
-Holding furosemide with soft BPs
# Hx Chronic anxiety
-Hold Adderall for now, can resume if RVR resolves
# Hx Arthritis
-Continue hydroxychloroquine
# Hx NIDDM2
-Continue metformin, to restart 04/17/25 after [facility]
Discussed the above with Dr. Salguero at the time of admission. Attending attestation to follow. Care coordinated with ED physician and RN.
Critical care time = 45 minutes
--- NOTE | 2025-04-16 22:44 | EDRN ---
Called IVU, instructed to bring pt up in 10-15 minutes
[2025-04-17] MEDS: MAGNESIUM SULFATE 50 IV (00:19)
[2025-04-17 00:26] LABS: Glucose - Point of Care 147 mg/dl (70-99)
[2025-04-17] MEDS: GLUCOPHAGE 1000 MG PO (00:26)
[2025-04-17] MEDS: TYLENOL 650 MG PO (00:31)
[2025-04-17] MEDS: AMBIEN 10 MG PO (00:31)
--- NOTE | 2025-04-17 01:04 | PTCARENOTE ---
Pt. rec'd into room 2256 from ED AAOx3, A-fib on the monitor with rate 120's-150's, other vitals stable. Amio gtt infusing at 1 mg/min. Pt. complaining of some incisional discomfort at left anterior chest surgical wound (RAHEEM without drainage) and
left lateral old chest tube site (dressing changed, some SS drainage present). Medicated with Tylenol with adequate relief obtained. New #20 left forearm INT inserted without difficulty; mag michael hung and infusing as per order. Plan of care
discussed with pt., understanding verbalized. A-fib book given. Pt. currently resting quietly.
[2025-04-17 01:59] VITALS: BP 93/78
[2025-04-17] MEDS: CORDARONE 103 MG IV (02:01)
--- NOTE | 2025-04-17 03:00 | PTCARENOTE ---
HR still 130's-150's - A-fib. Pt.sleeping. Additional amiodarone bolus given per order.
[2025-04-17 04:10] VITALS: BMI 24.4
[2025-04-17 04:13] VITALS: BP 113/81
--- NOTE | 2025-04-17 04:49 | ECGCV ---
<Kar CAPPS> notified of ECG critical value identified by electronic interpretation on ECG completed on <04/17/25>, at <0429>. Pt. has no chest pain/discomfort. No new orders at this time.
[2025-04-17 04:53] LABS: Blood Urea Nitrogen 25 mg/dl (9-20); Calcium 8.7 mg/dl (8.4-10.2); Carbon Dioxide 24 mmol/L (22-30); Chloride 105 mmol/L (98-107); Estimated Creatinine Clearance 82 ml/min; Glucose 135 mg/dl (70-99); Magnesium 2.4 mg/dl (1.6-2.3); Potassium 4.2 mmol/L (3.5-5.1); Sodium 134 mmol/L (135-145); eGFR > 60.00
[2025-04-17] MEDS: LOPRESSOR 12.5 MG PO (05:09)
--- NOTE | 2025-04-17 06:09 | W.PN.CT ---
Today's Communication / Plan
-
-continue amio, 2nd amio bolus given overnight, still on gtt this AM
-start low dose BB this AM and increase as tolerated
-may consult cardiology later today for possible cardioversion if still in Afib for tomorrow
-follow lytes and replace aggressively
Assessment / Plan
-
Brennan Ortiz is a 65 year old male with a history of paroxysmal atrial fibrillation maintained on apixaban and recent admission for a robotic assisted MIDCAB x1 (PINO-LAD) with eLAA (#35 mm) on 04/13/[address] Babatunde Salguero and a C with CHARMAINE x 2
(distal Circ & Mid Circ on 04/14/25) with Dr. Denzel Rutledge, who is now postop day #4 and presented to the emergency department on 04/16/25 for atrial fibrillation with rapid ventricular response now on IV amiodarone.
# Atrial fibrillation with rapid ventricular response
# Dizziness
# Palpitations
# Acute hypotension
# CAD s/p robotic assisted MIDCAB x1 (PINO-LAD) with eLAA (#35 mm) and C with CHARMAINE x 2 (distal Circ & Mid Circ) on 04/14/25)
# Hx Paroxysmal atrial fibrillation maintained on apixaban
-Continue on amiodarone infusion per protocol
-Attempt to initiate beta-per if blood pressure allows, for now holding standing Toprol XL
-follow K/Mg and replete accordingly
-Ideally he will convert to sinus with medical management. If he remains in atrial fibrillation he may require cardioversion on Friday.
-Continue Eliquis and Plavix
-Multimodal post op pain management
# Hx HTN
# Hx HLD
-Continue atorvastatin
-Holding furosemide with soft BPs
# Hx Chronic anxiety
-Hold Adderall for now, can resume if RVR resolves
# Hx Arthritis
-Continue hydroxychloroquine
# Hx NIDDM2
-Continue metformin, to restart 04/17/25 after [facility]
Subjective
Procedure
robotic assisted MIDCAB x1 (PINO-LAD) with eLAA (#35 mm) on 04/13/[address] Babatunde Salguero and a C with CHARMAINE x 2 (distal Circ & Mid Circ on 04/14/25) with Dr. Denzel Rutledge
-
Date of Service: April 17, 2025
Objective Data
-
Lab Results
04/16/25 19:59
04/17/25 04:18
PT 17.0 Sec (11.4-14.6) H 04/16/25 19:59
INR 1.36 04/16/25 19:59
Vital Signs
Vital Signs
Temp Pulse Resp BP Pulse Ox
98.9 F 142 16 113/81 96
04/17/25 04:12 04/17/25 05:09 04/17/25 04:12 04/17/25 05:09 04/17/25 04:13
CT Intake/Output/Weight
04/16/25 04/16/25 04/17/25
06:59 18:59 06:59
Intake Total 480 / 480
Output Total 200 / 200
Balance 280 / 280
SaO2: 96
Physical Exam
-
General: Awake, Oriented and AOx3
Cardiovascular: Irregular rate & rhythm, No Murmurs and No Rub
Respiratory: Clear and Equal
Incision: Clean and Dry
Extremities: No Edema and No Erythema
Data Reviewed
-
Lab Results: Results Reviewed
Medications: Active Meds Reviewed
ECG: Report Reviewed
--- NOTE | 2025-04-17 06:39 | PTCARENOTE ---
Pt. converted to NSR rate 70's - EKG completed; Kar Wagner notified, no new orders.
[2025-04-17 07:31] VITALS: BP 102/67
[2025-04-17] MEDS: PACERONE 400 MG PO (08:35)
[2025-04-17] MEDS: PLAVIX 75 MG PO (08:37)
[2025-04-17] MEDS: PLAQUENIL 200 MG PO (08:37)
[2025-04-17] MEDS: GLUCOPHAGE 500 MG PO (08:37)
[2025-04-17] MEDS: ELIQUIS 5 MG PO (08:37)
[2025-04-17 11:49] VITALS: BP 105/75
[2025-04-17 14:14] VITALS: BP 120/79
--- NOTE | 2025-04-17 14:39 | W.DCSUMMARY ---
Discharge Summary
Discharge Data
Date of Admission: 04/16/25
Date of Discharge: 04/17/25
-
Pending Results: No
Hospital Course
Primary care physician:
Dr. Brennan Ortiz
Outpatient estimator printing:
Dr. Willie Trinidad
Inpatient consultants:
Procedures:
1. none
Admission Diagnosis:
AFib with RVR
Secondary Diagnoses:
Coronary Artery Disease s/p CABG and PCI
Bicuspid aortic valve with mild
diabetes mellitus, type2
Paroxysmal A-fib on Eliquis
Hypertension
Hyperlipidemia
Rheumatoid arthritis
Anxiety
Excision skull osteoma (2012)
HPI: This is a very pleasant 65 year old male with a history of paroxysmal atrial fibrillation maintained on apixaban, hypertension, hyperlipidemia, bicuspid aortic valve with mild (peak/mean 25/14 mmHg) and recent admission for a robotic
assisted MIDCAB x1 (PINO-LAD) with eLAA (#35 mm) on 04/13/[address] Babatunde Salguero and a C with CHARMAINE x 2 (distal Circ & Mid Circ on 04/14/25) with Dr. Denzel Rutledge, who is now postop day #3 and presented to the emergency department with his for
atrial fibrillation with rapid ventricular response. He was discharged on 04/15/2025 and a discharge weight of 83.6 kg and plan to follow-up with cardiac surgery office in 2 to 4 weeks and with cardiology. Today he reported feeling increasingly weak
and tired. The symptoms were persistent and aggravated by movement, alleviated with rest. His watch has a heart monitor on it and he was alerted that he was in a rapid heart rate. He reported associated palpitations and dizziness/orthostasis
while standing. He denies any chest pain, pressure, discomfort that is new compared to his postoperative pain. He denies any fever, chills, cough or congestion. He denies any dependent edema or shortness of breath. He called his outpatient
estimator printing who had recommended he take a blood pressure at home which was reported to be in the 90 systolic range and subsequently presented to the emergency department. His EKG on arrival confirmed he was in atrial fibrillation with rapid
ventricular response up to 160s. He was initially started on a Cardizem infusion however after further discussion he was changed to IV amiodarone bolus and drip. At the time of my assessment the patient reports ongoing palpitations but otherwise
ROS as above.
Hospital course: Patient was admitted on 04/16/25. He was given Amiodarone (bolus x2 and drip) and converted to NSR early the next morning. He was switched to low dose PO amiodarone (100mg daily) due to being on Plaquenil for his arthritis. Referral
was made for him to follow up with Cardiology in one week to monitor Qtc. EKG on 04/17 at 14:00 had Qtc of 458. He will follow up with Dr. Salguero in the office as scheduled.
Home medication changes:
Added:
Amiodarone 100mg daily
Discharge Plan
-
Patient Disposition: Home (Routine Discharge)
Discharge Diagnosis/Procedures: AF with RVR
Condition: Good
Diet: Low Fat and Low Cholesterol
Activity: No strenuous activity
Driving Restrictions: No driving
Bathing Restrictions: OK to Shower
Activity Restrictions/Additional Instructions:
ACTIVITY:
-No strenuous activity: no heavy lifting, pushing, pulling anything over 15 pounds for one month
-continue to use stairs as tolerated
DRIVING RESTRICTIONS:
-No driving for one month or until approved by your surgeon
WOUND CARE:
-Shower daily. Use soap & water.
-No lotions, creams or powders on incision area.
DIET:
-continue a low fat/low cholesterol diet.
-IF you are diabetic, continue carb controlled diet.
CARDIAC REHAB:
-Please make appointment to start in 5-6 weeks with your local hospital program. (See Cardiac Rehabilitation Discharge Booklet).
SPECIALTY INSTRUCTIONS:
-Weigh yourself daily. Call your physician for any weight gain/loss of 3 lbs overnight or 5 lbs in one week.
-REPORT any clicking noise or uneven appearance of your sternum to your surgeon immediately.
-If you smoke, you are instructed to quit. The [place] smoking hotline phone number is [phone]
Referrals:
Shi Rey CRNP [Specified Professional Personl, Cardiology] - in less than 1 week
Referral Note: Readmitted with AF with RVR. Started on amiodarone with conversion to NSR. On plaquenil. Monitor Qtc
Pily Howell CRNP [Family Provider, Family Practice]
Prescriptions:
New
amiodarone [Pacerone] 200 mg Tablet
100 mg PO DAILY Qty: 15 2RF
Continued
metoprolol succinate [Toprol XL] 25 mg tablet extended release 24 hr
12.5 mg PO QPM
hydroxychloroquine 200 mg Tablet
200 mg PO BID
zolpidem 12.5 mg tablet,ext release multiphase
12.5 mg PO PRN PRN (Reason: Insomnia)
atorvastatin 40 mg tablet
40 mg PO QPM Qty: 90 10RF
dextroamphetamine-amphetamine [Adderall] 20 mg Tablet
20 mg PO DAILY Qty: 0 0RF
Eliquis 5 mg tablet
5 mg PO BID
sennosides-docusate sodium 8.6-50 mg Tablet
1 tab PO [id number] PRN (Reason: Constipation) Qty: 0 0RF
acetaminophen 325 mg Tablet
650 mg PO Q6HPRN PRN (Reason: mild pain,headache,temp >101F ) Qty: 0 0RF
clopidogrel 75 mg Tablet
75 mg PO DAILY 60 Days Qty: 60 0RF
Rx Instructions:
To continue for 1-year. Re-fills to be obtained by estimator printing.
metformin 500 mg Tablet
500 mg PO DAILY Qty: 0 0RF
Rx Instructions:
Continue on 04/17/25
metformin 500 mg Tablet
1,000 mg PO HS Qty: 0 0RF
Rx Instructions:
Resume on 04/17/25
cyclobenzaprine 10 mg Tablet
5 mg PO Q8HPRN PRN (Reason: muscle spasm) Qty: 10 0RF
oxycodone 5 mg Tablet
2.5 - 5 mg PO Q6HPRN PRN (Reason: moderate pain) Qty: 10 0RF
Discontinued
furosemide [Lasix] 40 mg tablet
40 mg PO DAILY 4 Days Qty: 0 0RF
Discharge Orders:
Discharge Patient (As Directed); Ordered 04/17/25
Ordered By: Graeme Stewart
Discharge Date and Time
Print Language: GREENLANDIC
--- NOTE | 2025-04-17 15:43 | PTCARENOTE ---
Pt denies any discomfort, telemetry shows sinus rhythm, amiodarone infusion discontinued at 10:34, pt started on oral amiodarone. ECG done at 14:00 reviewed with CONCETTA Romano and Dr.Rob King. Pt walking in halls without problem. Left
chest wound dressing changed, small amount of clear serous dressing noted, CT transitional RN to visit pt at his home soon to follow up. Telemetry and IV devices removed. Discharge instructions reviewed with pt and his regarding medications and
their possible side effects, wound care, activity and driving restrictions and follow up appt's. Excellent understanding verbalized. Pt escorted out via wheelchair and pt discharged to home.
== END 2025-04-17 15:35 | disposition home or self-care (01) ==
LOC: IVU 22:16
PROVIDERS: Nurse Practitioner; ADMITTING PHYSICIAN Thoracic Surgery (Cardiothoracic Vascular Surgery); EMERGENCY PHYSICIAN Emergency Medicine; FAMILY PHYSICIAN Nurse Practitioner Family
DX: I48.0 Paroxysmal atrial fibrillation (principal); R00.2 Palpitations; R42 Dizziness and giddiness; R00.0 Tachycardia, unspecified; I10 Essential (primary) hypertension; E78.5 Hyperlipidemia, unspecified; Q23.81 Bicuspid aortic valve; R53.1 Weakness; E04.1 Nontoxic single thyroid nodule; F41.9 Anxiety disorder, unspecified; M54.12 Radiculopathy, cervical region; G89.18 Other acute postprocedural pain; I25.10 Atherosclerotic heart disease of native coronary artery without angina pectoris; M19.90 Unspecified osteoarthritis, unspecified site; M06.9 Rheumatoid arthritis, unspecified; E11.40 Type 2 diabetes mellitus with diabetic neuropathy, unspecified; I95.9 Hypotension, unspecified; I49.1 Atrial premature depolarization; Z95.5 Presence of coronary angioplasty implant and graft; Z95.1 Presence of aortocoronary bypass graft; Z79.01 Long term (current) use of anticoagulants; Z79.84 Long term (current) use of oral hypoglycemic drugs; Z79.899 Other long term (current) drug therapy
CPT/HCPCS: 80048; 80053; 82962; 83735; 83880; 84443; 84484; 85025; 85610; 87070; 93005; 96361; 96365; 96366; 96375; 99291; G0378

== ENCOUNTER 2025-04-20 09:40 | Emergency (ER) | payer BC, SELFPAY ==
[2025-04-20] VITALS (20 sets, daily range): BP systolic 90–125; BP diastolic 58–93; BMI 24.9
--- NOTE | 2025-04-20 10:05 | ED.GENMED ---
History of Present Illness
General
Chief Complaint: Chest Pain
Source: patient
Exam Limitations: none
Time Seen by Provider: 04/20/25 09:54
History of Present Illness
History of Present Illness:
See MDM
Past History
Past History
ED Past Medical History: None
ED Past Surgical History: None
Social History
Tobacco: Non-smoker
Phy Exam
Physical Exam
Physical Exam:
See MDM
Scores
Heart Score for Chest Pain Patients
STEMI patient?: Not applicable
Course
Orders/Labs/Results
Orders:
Orders
04/20/25 09:41
Electrocardiogram (*1) Urgent
Reason for Study: Atrial Fibrillation
EKG- Treatment ONCE
04/20/25 10:01
0.9% Sodium Chloride 1000 ml [Nss] 1,000 ml IV BOLUS
04/20/25 10:11
Complete Blood Count/With Diff Urgent
Comprehensive Metabolic Panel Urgent
Magnesium Urgent
04/20/25 10:13
Diltiazem 125 mg/125 ml Nss [Cardizem] 125 mg in 125 ml IV NOW
Initial dose in mg/hr, then titrate:: 5
Titrate to keep:: Heart rate 80-100 bpm
Titrate by mg/hr:: 5 mg/hr
Frequency of titrations (minutes):: 15
Maximum dose in mg/hr:: 15
Diltiazem HCl [Cardizem] 10 mg IV NOW STA
04/20/25 11:14
Diltiazem HCl [Cardizem] 10 mg IV NOW STA
04/20/25 12:41
EKG [Electrocardiogram (*1)] Urgent
Reason for Study: Other
Other Reason for Exam: Converted into sinus rhythm
04/20/25 12:42
EKG- Treatment ONCE
04/20/25 12:47
Metoprolol Xl [Toprol Xl] 25 mg PO NOW STA
Abnormal Lab Results
04/20/25
10:11
WBC 16.2 H 10^3/uL
(4.8-10.8)
RBC 4.52 L 10^6/uL
(4.70-6.10)
MCH 31.4 H pg
(27.0-31.0)
Abs Immat Gran (auto) 0.1 H 10^3/uL
(0-0.05)
Absolute Neuts (auto) 12.2 H 10^3/uL
(1.4-6.5)
Absolute Monos (auto) 1.5 H 10^3/uL
(0.1-0.6)
Immature Gran % 0.7 H %
(0-0.5)
Neutrophils % 75.7 H %
(42.2-75.2)
Lymphocytes % 10.1 L %
(20.5-51.1)
Monocytes % 9.5 H %
(1.7-9.3)
Sodium 133 L mmol/L
(135-145)
BUN 24 H mg/dl
(9-20)
Glucose 167 H mg/dl
(70-99)
AST 16 L U/L
(17-59)
Total Protein 5.9 L g/dl
(6.3-8.2)
Albumin 3.4 L g/dl
(3.5-5.0)
04/20/25 10:11
04/20/25 10:11
Vital Signs
Initial and Last Documented VS:
Initial Vital Signs
Temp Pulse Resp BP Pulse Ox
98.0 F 121 18 105/66 99
04/20/25 09:49 04/20/25 09:49 04/20/25 09:49 04/20/25 09:49 04/20/25 09:49
Last Documented Vital Signs
Temp Pulse Resp BP Pulse Ox
98.0 F 87 24 98/69 98
04/20/25 09:49 04/20/25 12:51 04/20/25 12:40 04/20/25 12:51 04/20/25 12:40
MDM/Problems Addressed
Differential Diagnosis Includes:
Note:
CHIEF COMPLAINT(S)
Atrial Fibrillation (AFib) exacerbation.
HISTORY OF PRESENT ILLNESS
The patient, a 65-year-old male, presents with a history of atrial fibrillation and recent coronary artery bypass grafting (CABG) last week. The patient has hx of PAF and has been on the anticoagulant medication Apixaban (Eliquis) prior to the CABG
procedure, although it was suspended a couple of days before surgery, consistent with typical surgical protocols. Postoperatively, the patient has experienced episodic atrial fibrillation, which is not unusual following CABG, given the manipulation
of the heart during surgery. This AFib exacerbation seems to have occurred either today or yesterday.
The patient is currently on Metoprolol at a dosage of 12.5 mg once daily. The patient and their care team anticipate the potential recurrence of atrial fibrillation as the heart continues to heal post-surgery. The team has discussed the introduction
of Diltiazem (Cardizem) to manage heart rate, with the patients understanding that the goal is to achieve rate control and, optimally, rhythm conversion to sinus rhythm.
The cardiology team has been notified of the patient�s current status and plan. The possibility of electrical cardioversion was discussed, contingent upon agreement with the cardiology team and ensuring the patient�s anticoagulation status is
sufficient to mitigate embolic risk. The patient has been educated on the procedure, its rationale, and potential outcomes.
PAST MEDICAL AND SURGICAL HISTORY
The patient has a history of atrial fibrillation and has undergone recent coronary artery bypass grafting.
CHRONIC MEDICAL CONDITIONS SIGNIFICANTLY AFFECTING CARE
Atrial fibrillation.
MEDICATIONS
- Apixaban (Eliquis) - Anticoagulant resumed post-CABG as part of AFib management.
- Metoprolol 12.5 mg once daily - Beta-per for heart rate control.
- Oxycodone/Acetaminophen (Percocet) - Prescribed postoperatively for pain, with the patient declining additional pain medication.
PHYSICAL EXAM
General: Alert, no acute distress.
Skin: Warm, dry.
Head: Normocephalic, atraumatic
Neck: Appears supple, trachea midline.
Eyes, Ears, Nose, Mouth, and Throat: Oral mucosa moist.
Cardiovascular: No signs of cyanosis. Tachycardic and irregular
Respiratory: Respirations are non-labored.
Abdomen: Non-distended
Musculoskeletal: No deformities
Neurological: No focal neurological deficit observed.
Psychiatric: Cooperative, appropriate mood and affect.
PROBLEM LIST
Acute:
- Exacerbation of atrial fibrillation post-CABG.
Chronic:
- Atrial fibrillation.
PLAN
1. Confirm cardiology�s agreement on the initiation of rate control with Diltiazem (Cardizem).
2. Consider electrical cardioversion pending anticoagulation status confirmation (at least three weeks of consistent anticoagulant use).
3. Establish IV access and possibly administer fluids as part of stabilization.
4. Continuous monitoring and close collaboration with cardiology are necessary to steer the treatment approach, including adjusting medications as needed.
5. Obtain reassurance from cardiology regarding potential electrical cardioversion should the patient require it and maintain diligent anticoagulation therapy.
DIFFERENTIAL DIAGNOSIS
The Differential Diagnosis includes, in no particular order and is not limited to:
- Postoperative atrial fibrillation.
- Recurrent atrial fibrillation.
- Electrolyte imbalance.
- Myocardial ischemia or injury.
- Medication-induced arrhythmia.
- Thyroid dysfunction.
- Valvular heart disease.
- Pulmonary embolism.
- Heart failure exacerbation.
- Anxiety or stress-related tachycardia.
04/20/25 - 10:14
Patient currently on amiodarone and metoprolol at home. Discussed administration of Cardizem (diltiazem) bolus followed by drip as potential strategy for cardioversion. Patient deemed unsuitable for electrical cardioversion given recent
discontinuation of Eliquis (apixaban).
04/20/25 - 12:33
The patient is stable and rate-controlled on Cardizem drip. The patient expressed interest in exploring discharge options, preferring to avoid readmission unless absolutely necessary. There is concern about the risk of returning to AFIB with RVR if
the Cardizem drip is discontinued. A cardiology consultation has been requested to discuss potential options with the patient.
04/20/25 - 12:43
Patient converted to normal sinus rhythm while on Cardizem drip and reports feeling improved. Case discussed with cardiology who suggested increasing his Toprol to 25 mg twice daily. Will give dose now. They left a message for his veterans service representative to
call him
SUMMARY OF ENCOUNTER
The patient presented with atrial fibrillation with rapid ventricular response (AFib with RVR). After administration of two doses of diltiazem bolus and continuous infusion on a diltiazem drip, the patient converted to sinus rhythm. Cardiology is
aware of the situation and will closely monitor the patient.
DISPOSITION
Discharge.
ASSESSMENT
Atrial fibrillation with rapid ventricular response, successfully converted to sinus rhythm.
PLAN
Increase the patients dosing of metoprolol and ensure that the patient continues to take his medications as prescribed. Cardiology will follow up closely.
PATIENT EDUCATION AND COUNSELING
The patient was informed about the importance of continuing his medications as prescribed and was reassured about his discharge safety with follow-up plans in place.
FOLLOW-UP INSTRUCTIONS
The patient is advised to follow up with cardiology as planned.
MEDICATION RECONCILIATION
1. Diltiazem (Cardizem) - Administered in the emergency department as two boluses and followed by a drip.
2. Metoprolol - Dosage increased, with the patient instructed to continue taking it as prescribed.
MEDICAL DECISION MAKING
1. Number and Complexity of Problems Addressed: Chronic conditions affecting care include atrial fibrillation. Differential diagnosis included postoperative atrial fibrillation, recurrent atrial fibrillation, electrolyte imbalance, myocardial
ischemia, medication-induced arrhythmia, thyroid dysfunction, valvular heart disease, pulmonary embolism, heart failure exacerbation, and anxiety or stress-related tachycardia.
2. Data:
- Category 1: EKG confirmed AFib with RVR; independently interpreted to confirm conversion to sinus rhythm post-treatment.
- Category 3: Management was discussed with cardiology, who is aware and will follow up with the patient.
3. Risk: Prescription medication management: Increased dosing of metoprolol upon discharge.
DIAGNOSIS
- I48.0 Paroxysmal atrial fibrillation
- I48.91 Unspecified atrial fibrillation
*Pulse Oximetry
SaO2: 99
Oxygen Mode of Delivery: Room air
Patient hypoxic: no
*Critical Care Note
Total Time (30-74mins, 75-104mins- exclusive of procedures): 33 min
comment:
The high probability of a clinically significant, sudden or life threatening deterioration of the cardiovascular system(s) required my full and direct attention, intervention and personal management. The aggregate critical care time was 33 minutes.
This time is in addition to time spent performing reported procedures but includes the following:
[x] Data Review and interpretation
[x] Patient assessment and monitoring of vital signs
[x] Documentation
[x] Medication orders and management
ED Attending Note
-
Portions of this chart may have been created with voice recognition software.� Occasional wrong word or��sound alike� substitutions may have occurred due to the inherent limitations of voice recognition software.
Discharge Plan
Departure
Patient Disposition: Home (Routine Discharge)
Date of Disposition: 04/20/25
Time of Disposition: 13:13
Patient with high blood pressure during this ER visit?: No
Discharge Problem:
Atrial fibrillation, rapid
Instructions: Atrial fibrillation
Prescriptions:
No Action
metoprolol succinate [Toprol XL] 25 mg tablet extended release 24 hr
12.5 mg PO QPM
hydroxychloroquine 200 mg Tablet
200 mg PO BID
zolpidem 12.5 mg tablet,ext release multiphase
12.5 mg PO PRN PRN (Reason: Insomnia)
atorvastatin 40 mg tablet
40 mg PO QPM Qty: 90 10RF
dextroamphetamine-amphetamine [Adderall] 20 mg Tablet
20 mg PO DAILY Qty: 0 0RF
Eliquis 5 mg tablet
5 mg PO BID
sennosides-docusate sodium 8.6-50 mg Tablet
1 tab PO [id number] PRN (Reason: Constipation) Qty: 0 0RF
acetaminophen 325 mg Tablet
650 mg PO Q6HPRN PRN (Reason: mild pain,headache,temp >101F ) Qty: 0 0RF
clopidogrel 75 mg Tablet
75 mg PO DAILY 60 Days Qty: 60 0RF
Rx Instructions:
To continue for 1-year. Re-fills to be obtained by veterans service representative.
metformin 500 mg Tablet
500 mg PO DAILY Qty: 0 0RF
Rx Instructions:
Continue on 04/17/25
metformin 500 mg Tablet
1,000 mg PO HS Qty: 0 0RF
Rx Instructions:
Resume on 04/17/25
cyclobenzaprine 10 mg Tablet
5 mg PO Q8HPRN PRN (Reason: muscle spasm) Qty: 10 0RF
oxycodone 5 mg Tablet
2.5 - 5 mg PO Q6HPRN PRN (Reason: moderate pain) Qty: 10 0RF
amiodarone [Pacerone] 200 mg Tablet
100 mg PO DAILY Qty: 15 2RF
Referrals:
Pily Zheng MD [Family Provider, Family Practice]
Activity Restrictions/Additional Instructions:
Please return for any worsening symptoms.
You may return at any time if you have further concerns.
The cardiology team sent a message to Dr. Trinidad to call you. The veterans service representative recommended increasing your metoprolol to 25 mg twice a day. Please continue you other medications as prescribed.
Thank you for choosing [facility].
Interventions
Interventions:
*Risk Screen - Suicide Last Done: 04/20/25 09:49
*General Assessment Last Done: 04/20/25 09:56
*Neglect/Abuse Screening Last Done: 04/20/25 09:49
*ED- Fall Risk Assessment Last Done: 04/20/25 09:56
*ED COVID-19 Vaccine History Last Done: 04/20/25 09:56
ED- Cardiac Assessment Last Done: 04/20/25 09:56
Discharge Date and Time
Print Language: KOREAN
[2025-04-20] MEDS: NSS 1000 IV (10:18)
[2025-04-20] MEDS: CARDIZEM 10 MG IV ×2 (10:19→11:24)
[2025-04-20] MEDS: CARDIZEM 125 IV (10:21)
[2025-04-20 10:25] LABS: Hematocrit 40.2 % (39.0-52.0); Hemoglobin 14.2 g/dL (13.0-18.0); Mean Corp Hgb Conc. 35.3 g/dL (33.0-37.0); Mean Corpuscular Volume 88.9 fL (80.0-94.0); Nucleated Red Blood Cells % 0 % (-); Platelet Count 335 10^3/uL (130-400); Red Cell Dist. Width 11.9 % (11.5-14.5)
[2025-04-20 10:41] LABS: ALT (SGPT) 15 U/L (0-50); AST (SGOT) 16 U/L (17-59); Albumin 3.4 g/dl (3.5-5.0); Alkaline Phosphatase 43 U/L (38-126); Blood Urea Nitrogen 24 mg/dl (9-20); Calcium 9.2 mg/dl (8.4-10.2); Carbon Dioxide 22 mmol/L (22-30); Chloride 103 mmol/L (98-107); Estimated Creatinine Clearance 82 ml/min; Glucose 167 mg/dl (70-99); Magnesium 2.0 mg/dl (1.6-2.3); Potassium 4.4 mmol/L (3.5-5.1); Sodium 133 mmol/L (135-145); Total Protein 5.9 g/dl (6.3-8.2); eGFR > 60.00
[2025-04-20] MEDS: TOPROL XL 25 MG PO (12:51)
== END 2025-04-20 13:46 | disposition home or self-care (01) ==
LOC: EMR 09:40
PROVIDERS: EMERGENCY PHYSICIAN Student in an Organized Health Care Education/Training Program; FAMILY PHYSICIAN Family Medicine
DX: I48.91 Unspecified atrial fibrillation (principal); Z79.01 Long term (current) use of anticoagulants; Z79.899 Other long term (current) drug therapy; Z95.1 Presence of aortocoronary bypass graft
CPT/HCPCS: 99283; 96374; 96376; 96361; 80053; 83735; 85025; 93005

== ENCOUNTER 2025-05-13 19:00 | Inpatient (IN) | payer BC, SELFPAY ==
[2025-05-13 15:38] VITALS: BP 122/72
[2025-05-13 16:07] LABS: Hematocrit 38.2 % (39.0-52.0); Hemoglobin 12.9 g/dL (13.0-18.0); Mean Corp Hgb Conc. 33.8 g/dL (33.0-37.0); Mean Corpuscular Volume 91.2 fL (80.0-94.0); Nucleated Red Blood Cells % 0 % (-); Platelet Count 332 10^3/uL (130-400); Red Cell Dist. Width 12.9 % (11.5-14.5)
[2025-05-13 16:17] LABS: ALT (SGPT) 16 U/L (0-50); AST (SGOT) 19 U/L (17-59); Albumin 3.7 g/dl (3.5-5.0); Alkaline Phosphatase 62 U/L (38-126); Blood Urea Nitrogen 26 mg/dl (9-20); Calcium 9.4 mg/dl (8.4-10.2); Carbon Dioxide 25 mmol/L (22-30); Chloride 105 mmol/L (98-107); Glucose 107 mg/dl (70-99); Potassium 4.5 mmol/L (3.5-5.1); Sodium 136 mmol/L (135-145); Total Protein 6.3 g/dl (6.3-8.2); eGFR 51.67
--- NOTE | 2025-05-13 16:19 | ED.GENMED ---
History of Present Illness
General
Chief Complaint: Post Operative Problem(s)
Time Seen by Provider: 05/13/25 16:18
History of Present Illness
History of Present Illness:
65-year-old male with history of A-fib, CAD status post CABG, [id number] diabetes, and hypertension presents to the emergency department for evaluation of possible infection to his recent minithoracotomy site. He is 1 month status post
PINO to LAD via robotic assisted minithoracotomy done at this hospital by Dr. Salguero. Postoperative course was complicated by paroxysmal A-fib for which she is now on amiodarone as well as Eliquis. Went to cardiac rehab today where his incision was
noted to be markedly red and thus he was sent to the ED for further evaluation. He denies fevers or chills. Denies discharge from the site.
Past History
Past History
ED Past Medical History: None
ED Past Surgical History: None
Social History
Tobacco: Non-smoker
Review of Systems
Review of Systems
Allergies reviewed?: Yes
All Other Systems: ROS reviewed and negative except as documented in HPI and ROS
Phy Exam
Physical Exam
Physical Exam:
GEN: Well appearing, NAD, WDWN
HEENT: Oral mucosa moist, no scleral icterus
Cardiac: Regular rate
Chest: Left-sided minithoracotomy site is well-approximated with minimal to no wound dehiscence and no discharge however there is extensive erythema extending 10 or so centimeters in a circular fashion in all directions from the wound and with
moderate induration at the base of the wound. There is no left axillary adenopathy
Lung: No respiratory distress, no tachypnea
MSK: No gross deformity or injuries
Skin: Good color, no pallor or jaundice, no rashes
Neuro: AO x3, moves all extremities freely
Psych: Calm, cooperative
Course
Orders/Labs/Results
Orders:
Orders
05/13/25 15:46
Complete Blood Count/With Diff Urgent
Comprehensive Metabolic Panel Urgent
05/13/25 16:25
CT Chest With Iv Contrast Urgent
Comment:
Reason For Exam: post op CT surgery wound infection
0.9% Sodium Chloride 1000 ml [Nss] 1,000 ml IV BOLUS
05/13/25 18:30
*Vancomycin 2,000 mg Loading Dose (consider for >/= 70 kg) Vancomycin [Vancocin] 2,000 mg 0.9% Sodium Chloride 500 ml [Nss] 500 ml IV NOW
Abnormal Lab Results
05/13/25
15:46
RBC 4.19 L 10^6/uL
(4.70-6.10)
Hgb 12.9 L g/dL
(13.0-18.0)
Hct 38.2 L %
(39.0-52.0)
Absolute Monos (auto) 0.9 H 10^3/uL
(0.1-0.6)
Absolute Eos (auto) 1.6 H 10^3/uL
(0-0.7)
Lymphocytes % 17.6 L %
(20.5-51.1)
Eosinophils % 16.4 H %
(0-6)
BUN 26 H mg/dl
(9-20)
Creatinine 1.5 H mg/dL
(0.7-1.3)
Glucose 107 H mg/dl
(70-99)
05/13/25 15:46
05/13/25 15:46
Vital Signs
Initial and Last Documented VS:
Initial Vital Signs
Temp Pulse Resp BP Pulse Ox
98.7 F 67 16 122/72 98
05/13/25 15:38 05/13/25 15:38 05/13/25 15:38 05/13/25 15:38 05/13/25 15:38
Last Documented Vital Signs
Temp Pulse Resp BP Pulse Ox
98.7 F 70 18 132/73 98
05/13/25 15:38 05/13/25 18:03 05/13/25 18:03 05/13/25 18:03 05/13/25 18:03
MDM/Problems Addressed
MDM/Problems Addressed:
Imaging interpreted by me shows no evidence of rim-enhancing fluid collection however soft tissue changes compatible with cellulitis. He is also noted to have a moderate size left pleural effusion. Will admit for IV antibiotics, CT surgery and
made aware of admission and will consult
*Pulse Oximetry
SaO2: 98
Oxygen Mode of Delivery: Room air
Patient hypoxic: no
*Critical Care Note
Total Time (30-74mins, 75-104mins- exclusive of procedures): Not Applicable
ED Attending Note
-
Portions of this chart may have been created with voice recognition software.� Occasional wrong word or��sound alike� substitutions may have occurred due to the inherent limitations of voice recognition software.
Discharge Plan
Departure
Patient Disposition: Admit
Date of Disposition: 05/13/25
Time of Disposition: 18:31
Admit to: Med/Surg
Presentation/result/management discussed w/ accepting MD/DO: Hospitalist
Discharge Problem:
Cellulitis of chest wall, Pleural effusion, left
Prescriptions:
No Action
metoprolol succinate [Toprol XL] 25 mg tablet extended release 24 hr
12.5 mg PO QPM
hydroxychloroquine 200 mg Tablet
200 mg PO BID
zolpidem 12.5 mg tablet,ext release multiphase
12.5 mg PO PRN PRN (Reason: Insomnia)
atorvastatin 40 mg tablet
40 mg PO QPM Qty: 90 10RF
dextroamphetamine-amphetamine [Adderall] 20 mg Tablet
20 mg PO DAILY Qty: 0 0RF
Eliquis 5 mg tablet
5 mg PO BID
sennosides-docusate sodium 8.6-50 mg Tablet
1 tab PO [id number] PRN (Reason: Constipation) Qty: 0 0RF
acetaminophen 325 mg Tablet
650 mg PO Q6HPRN PRN (Reason: mild pain,headache,temp >101F ) Qty: 0 0RF
clopidogrel 75 mg Tablet
75 mg PO DAILY 60 Days Qty: 60 0RF
Rx Instructions:
To continue for 1-year. Re-fills to be obtained by chain puller.
metformin 500 mg Tablet
500 mg PO DAILY Qty: 0 0RF
Rx Instructions:
Continue on 04/17/25
metformin 500 mg Tablet
1,000 mg PO HS Qty: 0 0RF
Rx Instructions:
Resume on 04/17/25
cyclobenzaprine 10 mg Tablet
5 mg PO Q8HPRN PRN (Reason: muscle spasm) Qty: 10 0RF
oxycodone 5 mg Tablet
2.5 - 5 mg PO Q6HPRN PRN (Reason: moderate pain) Qty: 10 0RF
amiodarone [Pacerone] 200 mg Tablet
100 mg PO DAILY Qty: 15 2RF
Referrals:
Pily Zheng MD [Family Provider, Family Practice]
Interventions
Interventions:
*Risk Screen - Suicide Last Done: 05/13/25 15:38
*Neglect/Abuse Screening Last Done: 05/13/25 15:38
ED-Skin Assessment Last Done: 05/13/25 18:03
Discharge Date and Time
Print Language: DOMINICAN
[2025-05-13] MEDS: NSS 1000 IV ×2 (17:01→21:56)
[2025-05-13 18:03] VITALS: BP 132/73
[2025-05-13 18:40] VITALS: BMI 24.4
--- NOTE | 2025-05-13 18:58 | HPS.HSE ---
Addendum entered and electronically signed by Braden Greene MD 05/13/25 20:53:
CT scan chest shows possible chest wall abscess so broaden antibiotics from Cefazolin to Vancomycin and Zosyn.
Original Note:
Family Physician
-
Family Physician: Pily Zheng
Chief Complaint
-
skin infection
History of Present Illness
65-year-old male past medical history of CAD status post CABG and PCI, bicuspid aortic valve with mild aortic stenosis, type 2 diabetes, paroxysmal atrial fibrillation on Eliquis, hypertension, hyperlipidemia, ADHD, rheumatoid arthritis, anxiety,
excision of skull osteoma, presenting for redness of the chest noticed that physical therapy cardiac rehab today. His chest has been red for the past few weeks. Denies any purulence or drainage from the chest. He has been able to exercise. He
has had a dry cough without shortness of breath since recent CABG. He does have some chest discomfort that has not gotten worse. No fevers or chills.
He underwent robotic assisted MIDCAB x 1 (PINO-LAD) with eLAA and left heart cath with CHARMAINE x 2 in distal circumflex and mid circumflex on 04/14.
He does not smoke or drink alcohol.
Medical History
Past Medical History
Past Medical History: Reports Other (CAD status post CABG and PCI, bicuspid aortic valve with mild aortic stenosis, type 2 diabetes, paroxysmal atrial fibrillation on Eliquis, hypertension, hyperlipidemia, ADHD, rheumatoid arthritis, anxiety,
excision of skull osteoma)
Past Surgical History: Reports None
Social History
Tobacco: Non-smoker
Alcohol: None
Drug: None
Family History
Family History: Not pertinent
Allergies / Home Medications
Allergies reflects when Allergies were last updated in [facility].
Home Medications with original date entered in [facility]
Allergy/Medication List:
Allergies
Allergy/AdvReac Type Severity Reaction Status Date / Time
No Known Allergies Allergy Verified 05/13/25 15:39
Home Medications
hydroxychloroquine 200 mg tablet 200 mg PO BID rheumatoid arthritis 03/30/25
metoprolol succinate 25 mg tablet,extended release 24 hr (Toprol XL) 12.5 mg PO QPM Heart Disease/Condition 03/30/25
zolpidem 12.5 mg tablet,extended release,multiphase 12.5 mg PO PRN PRN Insomnia 04/06/25
apixaban 5 mg tablet (Eliquis) 5 mg PO BID Blood Clot Prevention/Tx 04/14/25
atorvastatin 40 mg tablet 40 mg PO QPM High cholesterol #90 tabs 04/14/25
dextroamphetamine-amphetamine 20 mg tablet (Adderall) 20 mg PO DAILY Mental Health/Anxiety #0 tabs 04/14/25
acetaminophen 325 mg tablet 650 mg (2 x 325 mg) PO Q6HPRN PRN mild pain,headache,temp >101F #0 tabs 04/15/25
clopidogrel 75 mg tablet 75 mg PO DAILY Heart disease/condition 60 days #60 tabs 04/15/25
cyclobenzaprine 10 mg tablet 5 mg (1/2 x 10 mg) PO Q8HPRN PRN muscle spasm #10 tabs 04/15/25
metformin 500 mg tablet 1,000 mg (2 x 500 mg) PO HS Diabetes #0 tabs 04/15/25
metformin 500 mg tablet 500 mg PO DAILY Diabetes #0 tabs 04/15/25
oxycodone 5 mg tablet 2.5 - 5 mg (0.5 - 1 x 5 mg) PO Q6HPRN PRN moderate pain #10 tabs 04/15/25
sennosides 8.6 mg-docusate sodium 50 mg tablet 1 tab PO [id number] PRN Constipation #0 tabs 04/15/25
amiodarone 200 mg tablet (Pacerone) 100 mg (1/2 x 200 mg) PO DAILY #15 tabs 04/17/25
Review of Systems
-
History Source: Patient
A 12 point ROS was completed and negative except as noted: Yes
Constitutional: Reports No Symptoms
EENT: Reports No Symptoms
Respiratory: Reports See HPI
Cardiac: Reports See HPI
Abdomen/GI: Reports No Symptoms
: Reports No Symptoms
Musculoskeletal: Reports No Symptoms
Skin: Reports No Symptoms
Neurological: Reports No Symptoms
Endocrine: Reports No Symptoms
Hematologic/Lymphatic: Reports No Symptoms
Psych: Reports No Symptoms
Physical Exam
Vital Signs
Vital Signs
Temp Pulse Resp BP Pulse Ox
98.7 F 70 18 132/73 98
05/13/25 15:38 05/13/25 18:03 05/13/25 18:03 05/13/25 18:03 05/13/25 18:03
Physical Exam
General: Well Developed, Well Nourished and No Apparent Distress
HEENT: NormoCephalic, Moist mucous membranes and Atraumatic
Respiratory: Clear
Cardiac: S1/S2 and Regular Rhythm; No Murmur or Rub
GI: Soft, Non Tender, Non Distended and Normal Bowel Sounds; No Organomegaly
Rectal: Deferred by Provider
Musculoskeletal: No Clubbing, No Cyanosis and No Edema
Skin: Other (skin erythema ); No Rash
Neuro: Nonfocal/grossly intact
Laboratory Results
-
05/13/25 15:46
05/13/25 15:46
Laboratory Results
Total Bilirubin 0.5 mg/dl (0.2-1.3) 05/13/25 15:46
AST 19 U/L (17-59) 05/13/25 15:46
ALT 16 U/L (0-50) 05/13/25 15:46
Alkaline Phosphatase 62 U/L (38-126) 05/13/25 15:46
Data Reviewed
-
Lab Data: Labs Reviewed by me
Old Records: Reviewed
Impression/Plan
-
IMPRESSION:
PLAN:
# Postoperative surgical site cellulitis
# CAD status post recent MIDCAB x 1 (PINO-LAD) with eLAA, CHARMAINE x 2
-No discharge or purulence to suggest that washout would be needed
-CT chest result pending
- Cefazolin
- Cardiothoracic surgery consulted
- Hold Eliquis just tonight in case washout would be needed
# Post CABG left pleural effusion
-As per CT chest, report pending
- IR consulted for thoracentesis
- Continue Plavix
# Acute kidney injury possibly prerenal
- Continue gentle IV fluid
Bicuspid aortic valve/mild aortic stenosis
Paroxysmal atrial fibrillation
- Continue amiodarone
- Hold Eliquis tonight
- Continue metoprolol
Type 2 diabetes
- Hold metformin
- Insulin sliding scale
Essential hypertension
Hyperlipidemia
- Continue statin
ADHD
Rheumatoid arthritis
- Continue hydroxychloroquine
Anxiety
Excision of skull osteoma
Full code
DVT prophylaxis�heparin
Regular diet
[2025-05-13] MEDS: VANCOCIN 540 MG IV (19:01)
[2025-05-13 20:07] VITALS: BP 156/80
--- NOTE | 2025-05-13 20:45 | PTCARENOTE ---
Pt arrived to unit from ED via stretcher. Pt ambulated from stretcher to bed independently. A&Ox3. Oriented to unit. Call light within reach. Plan of care ongoing.
[2025-05-13 20:50] VITALS: BP 114/66; BMI 24.6
[2025-05-13 21:20] LABS: Glucose - Point of Care 171 mg/dl (70-99)
--- NOTE | 2025-05-13 21:38 | PHA.VAN.IN ---
Assessment
- Assessment
Renal Function: SCR Appears Elevated from baseline
Concomitant Antimicrobials: Piperacillin/Tazobactam
Plan
- Plan
Initial / Loading Dose: 2000 IV ~ 1900
Maintenance Regimen: Dose by random level
Monitoring: Random level scheduled 05/14 at 0600 w AM labs
Pharmacokinetics Vancomycin I
- -
Patient Age: 65
Patient Sex: Male
Vancomycin Day #: 1
Indication: Skin And Soft Tissue
Requesting Provider: Dr Jc Combs
Height / Weight:
Height 6 ft
Actual Weight 82.27 kg
Pertinent Past Medical History: NIDM, infection to his recent minithoracotomy site.
- Vital Signs / Lab Results
Temp Pulse Resp BP Pulse Ox
97.8 F 79 16 114/66 97
05/13/25 20:50 05/13/25 20:50 05/13/25 20:50 05/13/25 20:50 05/13/25 20:50
Lab Results - Hematology
05/13/25
15:46
WBC 9.8
Lab Results - Chemistry
05/13/25
15:46
BUN 26 H
Creatinine 1.5 H
Albumin 3.7
[2025-05-13 21:47] LABS: LDH 199 U/L (120-246)
[2025-05-13] MEDS: HEPARIN 5000 UNITS SC (21:54)
[2025-05-13] MEDS: ATARAX 25 MG PO (21:54)
[2025-05-13] MEDS: ZOSYN 50 IV (21:56)
--- NOTE | 2025-05-13 22:43 | CONSULT.CT ---
Consultation
-
Date/Time Consultation Requested: 05/13/25, 8:45 pm
Date/Time Consultation Performed: 05/13/25, 10 pm
Requesting Provider: Dr. Greene
Performing Provider: Debo Gray PA-C for Dr. Salguero
Reason for Consultation: redness and tenderness at the L chest incision
Patient History
Physicians
Family Physician: Pily Zheng
History of Present Illness
Mr Ortiz is a very pleasant 65 yo with past medical hx of CAD, s/p robotic-assisted MidCAB bypass Lamas-LAD and left atrial appendage exclusion with 35 mm clip on 04/13/[address] Salguero, followed by stenting of L Circ (CHARMAINE x2) by Dr. Rutledge on 04/14/25,
hx bicuspid aortic valve with mild , paroxysmal afib (on Eliquis), DM II, HTN, HLD, rheumatoid arthritis, hx of thyroid nodules, ADHD, and excision of skull osteoma in 2012.
He has been feeling fatigue, some SOB, lightheadedness, and productive cough since his heart surgery. Over the past couple of weeks, he noticed redness and tenderness over the L chest incision. He denies fever, chills or any drainage from the
incision. Redness was noted at the cardiac rehab today and he was urged to come to ED. On admission, he is afebrile with stable vital signs.
Chest CT revealed 2.7 cm loculated rim-enhancing fluid collection in the left anterior chest wall overlying the left anterior 5th rib. Diagnostic possibilities include either an abscess or a postoperative seroma. There is moderate surrounding
subcutaneous edema, which could be cellulitis or postoperative inflammation. There is also moderate size L pleural effusion causing compressive atelectasis of the basilar segments of the L lower lobe. Mr Ortiz was started on Zosyn and Vancomycin
and IR consulted for thoracentesis. His last Eliquis was on the morning of 05/13.
Past Medical History
Past Medical History: Atrial Fib, CAD, HTN, Hypercholesterolemia, NIDDM, Psychiatric (Anxiety) and Valvular Disease (bicuspid aortic valve with mild )
ADHD, Rheumatoid arthritis, hx of thyroid nodules
Past Surgical History
-MIDCAB with Lamas-LAD bypass on 04/13/25
-CHARMAINE stents to Circ on 04/14/25
-skull osteoma excision in 2012
Family History
Family Medical History: Other (not pertinent)
Social History
Alcohol: None
Drug: None
Tobacco: Non-Smoker
Allergies
Allergy/AdvReac Type Severity Reaction Status Date / Time
No Known Allergies Allergy Verified 05/13/25 15:39
Home Medications
�Medication �Instructions �Recorded �Confirmed �Type
hydroxychloroquine 200 mg tablet 200 mg PO BID rheumatoid arthritis 03/30/25 05/13/25 History
metoprolol succinate 25 mg 25 mg PO BID Heart 03/30/25 05/13/25 History
tablet,extended release 24 hr Disease/Condition
(Toprol XL)
apixaban 5 mg tablet (Eliquis) 5 mg PO BID Blood Clot 04/14/25 05/13/25 History
Prevention/Tx
atorvastatin 40 mg tablet 40 mg PO QPM High cholesterol #90 04/14/25 05/13/25 Rx
tabs
acetaminophen 325 mg tablet 650 mg (2 x 325 mg) PO Q6HPRN PRN 04/15/25 05/13/25 Rx
mild pain,headache,temp >101F #0
tabs
clopidogrel 75 mg tablet 75 mg PO DAILY Heart 04/15/25 05/13/25 Rx
disease/condition 60 days #60 tabs
metformin 500 mg tablet 1,000 mg (2 x 500 mg) PO HS 04/15/25 05/13/25 Rx
Diabetes #0 tabs
metformin 500 mg tablet 500 mg PO DAILY Diabetes #0 tabs 04/15/25 05/13/25 Rx
amiodarone 200 mg tablet (Pacerone) 100 mg (1/2 x 200 mg) PO DAILY #15 04/17/25 05/13/25 Rx
tabs
dextroamphetamine-amphetamine 20 20 mg PO DAILY PRN Mental 05/13/25 05/13/25 History
mg tablet (Adderall) Health/Anxiety
hydroxyzine pamoate 25 mg capsule 25 mg PO HS 05/13/25 05/13/25 History
Review of Systems
-
History Source: Patient
General: Reports Fatigue (no fever or chills)
HEENT: Reports No Symptoms
Respiratory: Reports GRANGER and Cough (productive cough without relief from Mucinex or decongestants)
Cardiac: Reports CAD (recent CAB x1 and stents to Circ)
Abdomen/GI: Reports No Symptoms
: Reports No Symptoms
Musculoskeletal: Reports No Symptoms
Neurological: Reports Other (occasional lightheadedness)
Vascular: Reports No Symptoms
Physical Exam
Vital Signs
Temp 97.8 F 05/13/25 20:50
Temp route: Oral 05/13/25 20:50
Pulse 79 05/13/25 20:50
Resp Rate 16 05/13/25 20:50
Blood pressure 114/66 05/13/25 20:50
Blood pressure extremity used: Right upper arm 05/13/25 20:50
Position: Lying 05/13/25 20:50
SaO2 97 05/13/25 20:50
Oxygen Mode of Delivery Room air 05/13/25 20:50
Actual Weight 181 lb 6 oz 05/13/25 20:50
Body Mass Index (BMI) 24.6 05/13/25 20:50
Labs
05/13/25 15:46
05/13/25 15:46
Exam
General: Well Developed and No Apparent Distress
HEENT: Normocephalic, Anicteric, Moist Mucous Membranes, PERRLA and EOMI
Neck: Trachea Midline
Respiratory: Other (very decreased breath sounds at L lower to mid base. Clear on R. No wheeze b/l)
Cardiac: S1/S2 and Regular Rhythm (no murmur or rub)
GI: Soft, Non Tender, Non Distended and Normal Bowel Sounds
Skin: Warm, Dry and Rash (mild erythema and swelling noted over the L anterior chest incision. No significant warmth noted. Incision is intact, clean, dry with no drainage)
Neuro: Awake, AO x 3 and Nonfocal/Grossly Intact
Assessment / Plan
-
Impression/Plan:
- Redness and edema at the L anterior chest incision, suspected cellulitis - started on Zosyn and Vanco
- Chest CT revealed 2.7 cm loculated fluid collection in the L anterior chest wall, possibly an abscess or a postoperative seroma. There is moderate surrounding subcutaneous edema,
which could be cellulitis or postoperative
inflammation.
- Moderate-size L pleural effusion with compressive atelectasis of the LLL base- plans for thoracentesis
- ADDISON- Cr 1.5 (1.0 preop)
- CAD - s/p MIDCAB x1 (Lamas-Lad) with L atrial appendage exclusion on 04/13/25 and LCirc stents (CHARMAINE x2) on 04/14/25
- DM II
- Paroxysmal a-fib - on Eliquis and Amio at home
- HTN/HLD
- Bicuspid AV with mild
- Anxiety
- Rheumatoid arthritis
- ADHD
- Hx of thyroid nodules
Data Reviewed
-
Social Insurance Adviser: Report Reviewed by me
CT Scan: Report Reviewed by me
Labs: Labs Reviewed by me
Old Records: Reviewed
[2025-05-13] MEDS: PLAQUENIL 200 MG PO (22:54)
[2025-05-13] MEDS: LIPITOR 40 MG PO (22:55)
[2025-05-13] MEDS: TOPROL XL 25 MG PO (22:55)
[2025-05-13 23:18] VITALS: BP 115/67
[2025-05-14 03:15] VITALS: BP 126/71
[2025-05-14] MEDS: ZOSYN 50 IV ×4 (03:59→21:28)
[2025-05-14 07:00] VITALS: BP 128/80
[2025-05-14 07:09] LABS: Hematocrit 36.7 % (39.0-52.0); Hemoglobin 12.5 g/dL (13.0-18.0); Mean Corp Hgb Conc. 34.1 g/dL (33.0-37.0); Mean Corpuscular Volume 90.2 fL (80.0-94.0); Nucleated Red Blood Cells % 0 % (-); Platelet Count 303 10^3/uL (130-400); Red Cell Dist. Width 12.9 % (11.5-14.5)
[2025-05-14 07:33] LABS: ALT (SGPT) 15 U/L (0-50); AST (SGOT) 17 U/L (17-59); Albumin 3.1 g/dl (3.5-5.0); Alkaline Phosphatase 59 U/L (38-126); Blood Urea Nitrogen 20 mg/dl (9-20); Calcium 8.8 mg/dl (8.4-10.2); Carbon Dioxide 24 mmol/L (22-30); Chloride 109 mmol/L (98-107); Estimated Creatinine Clearance 74 ml/min; Glucose 94 mg/dl (70-99); Potassium 4.5 mmol/L (3.5-5.1); Sodium 138 mmol/L (135-145); Total Protein 5.4 g/dl (6.3-8.2); eGFR > 60.00
[2025-05-14 08:05] LABS: Glucose - Point of Care 113 mg/dl (70-99)
[2025-05-14] MEDS: PACERONE 100 MG PO (08:11)
[2025-05-14] MEDS: HEPARIN 5000 UNITS SC ×2 (08:12→21:27)
[2025-05-14] MEDS: PLAVIX 75 MG PO (08:12)
[2025-05-14] MEDS: TOPROL XL 25 MG PO ×2 (08:12→21:26)
--- NOTE | 2025-05-14 08:17 | PHA.VAN.FU ---
Vancomycin Assessment / Plan
- Assessment
Renal Function: SCR Decreasing
WBC's are: WNL
In the past 24 hrs, patient has been: Afebrile
Concomitant Antimicrobials: ZOSYN
- Assessment - Therapeutic Drug Monitoring
Random Level: 9.7
- Dosing Plan
Adjust Regimen to: 1000MG Q12H
New Regimen Predicts: AUC (545), Peak (31.8), Trough (15.4)
- Monitoring Plan
No level(s) ordered at this time: CONSIDER NEXT FEW DAYS
- Follow Up
Pharmacy will continue to follow.
Vancomycin Follow UP
- -
Patient Age: 65
Patient Sex: Male
Vancomycin Day #: 2
Indication: Skin And Soft Tissue
Requesting Provider: Dr Jc Combs
Height / Weight:
Height 6 ft
Actual Weight 82.27 kg
Pertinent Past Medical History: NIDM, infection to his recent minithoracotomy site.
- Vital Signs / Lab Results
Temp Pulse Resp BP Pulse Ox
98.5 F 68 18 128/80 96
05/14/25 07:00 05/14/25 08:12 05/14/25 07:00 05/14/25 08:12 05/14/25 07:00
Lab Results - Hematology
05/13/25 05/14/25
15:46 06:54
WBC 9.8 8.8
Lab Results - Chemistry
05/13/25 05/14/25
15:46 06:54
BUN 26 H 20
Creatinine 1.5 H 1.1
Estimated Creat Clear 74
Albumin 3.7 3.1 L
Therapeutic Drug Monitoring
Random Vancomycin 9.7 ug/ml 05/14/25 06:54
[2025-05-14] MEDS: PLAQUENIL 200 MG PO ×2 (08:28→21:27)
[2025-05-14 10:00] LABS: Glycohemoglobin (HgbA1c) 5.7 % (4.0-5.6)
[2025-05-14] MEDS: VANCOCIN 200 IV (10:06)
[2025-05-14 11:00] VITALS: BP 109/65
[2025-05-14 11:49] LABS: Glucose - Point of Care 112 mg/dl (70-99)
--- NOTE | 2025-05-14 12:32 | CM ---
Pt admitted with post-op cellulitis or inflamation following cardiac procedures last month.
CM met with resides with his spouse in a two story home with one step to enter. He has a full flight of steps to get to bedroom/full bathroom. He has a powder room on the first floor. Prior to admission he was independent with ambulation and adls.
He does not have any DME in the home. He has a prescription plan. His spouse will be home to assist in his care if needed.
Plan: CM will follow to coordinate all identified needs at discharge.
PCP: Pily Zheng
Pharm: [facility] in [place]
[2025-05-14] MEDS: NSS 1000 IV (12:43)
--- NOTE | 2025-05-14 12:54 | W.PN.HOSP.TC ---
Today's Communication/Plan
-
ID evaluation
maintain empiric abx
pending left thoracentesis
Assessment / Plan
Assessment / Plan
CT chest :
1. 2.7 cm loculated rim-enhancing enhancing fluid collection in the left anterior chest wall overlying the left anterior 5th rib. Diagnostic possibilities are (1) an abscess or (2) a postoperative seroma. Moderate surrounding subcutaneous edema
which could be cellulitis or postoperative inflammation
2. Minimal amount of nonloculated fluid in the anterior mediastinum.
3. MODERATE-SIZED LEFT PLEURAL EFFUSION causing compressive atelectasis of the basilar segments of the left lower lobe.
4. Recent CABG surgery and left atrial appendage exclusion.
5. Aberrant right subclavian artery.
6. Acute nondisplaced fracture or osteotomy of the left anterior 4th rib.

# Surgical site infection/cellulitis
# CAD status post recent MIDCAB x 1 (PINO-LAD) with eLAA, CHARMAINE x 2
-No discharge/dehiscence on exam
-CT chest showing possible seroma
-on vanc/zosyn currently
-CTS evaluated
-ID evaluation requested for antibiotic recommendation
# Post CABG left pleural effusion
- IR consulted for thoracentesis
- Continue Plavix
- have cough on deep inspiration , no coughing
# Acute kidney injury - resolved
- Continue gentle IV fluid
#Bicuspid aortic valve/mild aortic stenosis
#Paroxysmal atrial fibrillation
- Continue amiodarone
- Hold Eliquis for thoracentesis
- Continue metoprolol
#Type 2 diabetes
- Hold metformin
- Insulin sliding scale
Essential hypertension
Hyperlipidemia
ADHD
Rheumatoid arthritis - Continue hydroxychloroquine
Anxiety
Excision of skull osteoma
Full code
DVT prophylaxis�heparin
Total time spent : 52 mins
Care plan discussed with cardiothoracic surgery and infectious disease
Anticipated Discharge: Within 24 hours
Subjective/Interval History
-
Date of Service: May 14, 2025
Afebrile
Some cough on deep aspiration
Objective Data
-
Labs:
Laboratory Results
05/14/25
06:54
WBC 8.8
Hgb 12.5 L
Hct 36.7 L
Plt Count 303
Sodium 138
Potassium 4.5
Chloride 109 H
Carbon Dioxide 24
BUN 20
Creatinine 1.1
Glucose 94
Calcium 8.8
Total Bilirubin 0.5
AST 17
ALT 15
Alkaline Phosphatase 59
Vital Signs:
Vital Signs
Temp Pulse Resp BP Pulse Ox
98.7 F 68 19 109/65 97
05/14/25 11:00 05/14/25 11:00 05/14/25 11:00 05/14/25 11:00 05/14/25 11:00
I&O
05/13/25 05/14/25 05/15/25
06:59 06:59 06:59
Intake Total 240 / 240 150 / 150
Balance 240 / 240 150 / 150
Review of Systems
-
Respiratory: Reports No Symptoms
Cardiac: Reports No Symptoms
Abdomen/GI: Reports No Symptoms
Physical Exam
-
General: No Apparent Distress and Comfortable
HEENT: Negative Oxygen
Respiratory: Decreased Breath Sounds (Left lung base) and Other (Minimal erythema on left chest at surgica site, no tenderness)
Cardiac: Regular Rhythm and S1/S2; Negative Murmur or Rub
Musculoskeletal: No Edema
Neuro: Awake, Alert, Oriented, No Motor Deficits and Nonfocal/Grossly Intact
Psych: Calm
--- NOTE | 2025-05-14 14:19 | CON.ID ---
Consultation
-
Date/Time Consultation Requested: May 14, 2025 1105
Date/Time Consultation Performed: May 14, 2025 1420
Requesting Provider: Dr. Josh Banerjee
Performing Provider: Dr. Donna Soliz
Reason for Consultation: SSI, recent mini-CABG
Chief Complaint / Past History
Chief Complaint
Redness around chest incision.
History of Present Illness
65-year-old male with history of diabetes mellitus, CAD, status post recent robotic-assisted MidCAB bypass Lamas-LAD, L circ stent 04/14/25 who was sent from cardiac rehab to ED on May 13 due to left chest wall erythema. Patient reports he noted
redness at the left chest wall incision site approximately 2 weeks ago. The redness continued to expand and felt warm. No fevers or chills. He did not think anything of it until physical therapist at rehab told him he needed to go to the ER. He
also has cough and shortness of breath since cardiac surgery. No sputum. In ED, afebrile, normal white count. Chest CT showed 2.7 cm loculated rim-enhancing fluid collection in the left anterior chest wall with surrounding subcutaneous edema,
moderate-sized left pleural effusion. Patient is currently on vancomycin and Zosyn. He reports significant improvement of the chest wall redness. He is for thoracentesis of the left pleural effusion. No other complaints. No nausea, vomiting, or
diarrhea. No urine symptoms.
Past History
Additional Past Medical History:
Diabetes mellitus
Hypertension
Dyslipidemia
Paroxysmal atrial fibrillation
Bicuspid aortic valve
CAD status post robotic-assisted MidCAB bypass Lamas-LAD, L circ stent 04/14/25
Rheumatoid arthritis
ADHD
Anxiety
Scalp osteoma excision 2012
Allergy History:
No Known Allergies Allergy (Verified 05/13/25 15:39)
Medications Reviewed: Yes
Current Antibiotics:
Vancomycin
Zosyn
Social History
Tobacco: Non-Smoker
Alcohol: None
Drug: None
Personal:
Family History
Family History: Not Pertinent
Review of Systems
Review of Systems
General: Negative Fever, Chills or Change in Appetite
HEENT: Negative Sinus Problems or Headache
Cardiovascular: Dyspnea; Negative Chest Pain
Respiratory: Dyspnea and Cough; Negative Sputum Production
Gasteroenterology: Negative Nausea, Vomiting or Diarrhea
Genital / Urological: Negative Dysuria or Flank Pain
Endocrine: Negative Weakness
All systems: All other systems were reviewed and were negative
Vital Signs
Temp Pulse Resp BP Pulse Ox
98.7 F 68 19 109/65 97
05/14/25 11:00 05/14/25 11:00 05/14/25 11:00 05/14/25 11:00 05/14/25 11:00
Physical Exam
Physical Exam
Constitutional: No Acute Distress and Comfortable
Eyes: No Conjunctival Hemorrhage and Sclera Anicteric
Cardiovascular: Regular Rate and S1/S2
Pulmonary: Clear
Gastrointestinal: Soft, Non Tender, Non Distended and Normal Bowel Sounds
Genito-Urinary: Negative CVA Tenderness
Extremities: Negative Edema
Wound: Other (Left chest wall below nipple incision is closed without drainage, there is mild erythema along the incision more so medial side.)
Neurological: AO x 3
Lab / Diagnostic Study Results
05/14/25 06:54
05/14/25 06:54
Abs Immat Gran (auto) 0.0 10^3/uL (0-0.05) 05/14/25 06:54
Absolute Neuts (auto) 5.1 10^3/uL (1.4-6.5) 05/14/25 06:54
Absolute Lymphs (auto) 1.4 10^3/uL (1.2-3.4) 05/14/25 06:54
Absolute Monos (auto) 0.8 10^3/uL (0.1-0.6) H 05/14/25 06:54
Absolute Basos (auto) 0.1 10^3/uL (0-0.2) 05/14/25 06:54
Immature Gran % 0.3 % (0-0.5) 05/14/25 06:54
Neutrophils % 57.9 % (42.2-75.2) 05/14/25 06:54
Lymphocytes % 15.3 % (20.5-51.1) L 05/14/25 06:54
Monocytes % 8.8 % (1.7-9.3) 05/14/25 06:54
Eosinophils % 16.6 % (0-6) H 05/14/25 06:54
Basophils % 1.1 % (0-2) 05/14/25 06:54
Microbiology Results
05/13/[address]: 2.7 cm loculated rim-enhancing enhancing fluid collection in the left anterior chest wall overlying the left anterior 5th rib. Diagnostic possibilities are (1) an abscess or (2) a postoperative seroma. Moderate surrounding
subcutaneous edema which could be cellulitis or postoperative inflammation
Assessment / Plan
# Post-op left chest wall incision SSTI
# 2.7 cm rim-enhancing fluid in anterior chest wall suspect post-op seroma
# Moderate left pleural effusion - symptomatic
# Recent robotic midi-CABG x 1 04/14/25
- Cellulitis significant improvement
- DC Vancomycin (negative MRSA screen ore-op)
- Continue Zosyn for now
- At time of dc, transition to doxycycline 100mg po bid and levofloxacin 750mg po qd through 05/22.
- For left thoracentesis.
# Conditions [employer]
Diabetes mellitus
Hypertension
Dyslipidemia
Paroxysmal atrial fibrillation
Bicuspid aortic valve
CAD status post robotic-assisted MidCAB bypass Lamas-LAD, L circ stent 04/14/25
Rheumatoid arthritis
ADHD
Anxiety
Scalp osteoma excision 2012
Care Review
Plan reviewed with: Physician (Dr. Nghia Banerjee)
[2025-05-14 15:00] VITALS: BP 114/60
[2025-05-14 16:40] LABS: Glucose - Point of Care 117 mg/dl (70-99)
[2025-05-14] MEDS: LIPITOR 40 MG PO (17:20)
[2025-05-14 19:00] VITALS: BP 132/79
[2025-05-14] MEDS: ATARAX 25 MG PO (21:27)
[2025-05-14 21:57] LABS: Glucose - Point of Care 131 mg/dl (70-99)
[2025-05-14 23:00] VITALS: BP 128/73
[2025-05-15 03:00] VITALS: BP 134/71
[2025-05-15] MEDS: ZOSYN 50 IV ×2 (03:12→09:43)
[2025-05-15 07:00] VITALS: BP 133/77
[2025-05-15] MEDS: NSS IV (07:34)
[2025-05-15 08:30] LABS: Glucose - Point of Care 120 mg/dl (70-99)
[2025-05-15] MEDS: PACERONE 100 MG PO (09:44)
[2025-05-15] MEDS: PLAQUENIL 200 MG PO (09:44)
[2025-05-15] MEDS: TOPROL XL 25 MG PO (09:44)
[2025-05-15] MEDS: HEPARIN 5000 UNITS SC (09:44)
[2025-05-15] MEDS: PLAVIX 75 MG PO (09:44)
--- NOTE | 2025-05-15 10:18 | W.PN.ID1 ---
Date of Service
Date of Service: May 15, 2025
Today's Communication
At time of dc, transition to doxycycline 100mg po bid and cipro 500mg po bid through 05/22 (cipro with fewer drug interactions than levofloxacin).
Assessment / Plan
# Post-op left chest wall incision SSTI
# 2.7 cm rim-enhancing fluid in anterior chest wall suspect post-op seroma
# Moderate left pleural effusion - symptomatic
# Recent robotic midi-CABG x 1 04/14/25
- Cellulitis significant improvement
- Continue Zosyn for now
- At time of dc, transition to doxycycline 100mg po bid and cipro 500mg po bid through 05/22 (cipro with fewer drug interactions than levofloxacin).
- For outpatient thoracentesis.
# Conditions [employer]
Diabetes mellitus
Hypertension
Dyslipidemia
Paroxysmal atrial fibrillation
Bicuspid aortic valve
CAD status post robotic-assisted MidCAB bypass Lamas-LAD, L circ stent 04/14/25
Rheumatoid arthritis
ADHD
Anxiety
Scalp osteoma excision 2012
Chief Complaint
-: Cellulitis
Subjective / Review of Systems
left chest warmth resolved.
waiting for thoracentesis.
Vital Signs / Physical Exam
Vital Signs
Vital Signs
Temp Pulse Resp BP Pulse Ox
98.1 F 64 18 133/77 97
05/15/25 07:00 05/15/25 07:00 05/15/25 07:00 05/15/25 07:00 05/15/25 07:00
Physical Exam
Constitutional: No Acute Distress and Comfortable
Cardiovascular: Regular Rate and S1/S2
Pulmonary: Other (decreased BS left base)
Gastrointestinal: Soft, Non Tender, Non Distended and Normal Bowel Sounds
Extremities: Negative Edema
Wound: Other (left chest wall incision with mild surrounding erythema, dry, no wounds)
Neurological: AO x 3
Objective Data
Lab Data
Lab Results
05/14/25 06:54
05/14/25 06:54
Estimated Creat Clear 74 ml/min 05/14/25 06:54
Total Bilirubin 0.5 mg/dl (0.2-1.3) 05/14/25 06:54
AST 17 U/L (17-59) 05/14/25 06:54
ALT 15 U/L (0-50) 05/14/25 06:54
Alkaline Phosphatase 59 U/L (38-126) 05/14/25 06:54
Most recent labs reviewed.
05/13/[address]: 2.7 cm loculated rim-enhancing enhancing fluid collection in the left anterior chest wall overlying the left anterior 5th rib. Diagnostic possibilities are (1) an abscess or (2) a postoperative seroma. Moderate surrounding
subcutaneous edema which could be cellulitis or postoperative inflammation
Care Review
Plan reviewed with: Physician (Dr. Nghia Banerjee)
--- NOTE | 2025-05-15 10:34 | W.DCSUMMARY ---
Discharge Summary
Discharge Data
Date of Admission: 05/13/25
Date of Discharge: 05/15/25
-
Pending Results: No
Hospital Course
Discharging Physician : Dr Josh Banerjee
Disposition : To home
Primary care physician : Dr Pily Zheng
Principal Discharge diagnosis :
Surgical site infection/cellulitis
Left-sided pleural effusion
Acute kidney injury
Chronic Discharge diagnosis :
Coronary disease post recent mini bypass
Bicuspid aortic valve
Paroxysmal atrial fibrillation on Eliquis
Type 2 diabetes mellitus
Essential hypertension
Hyperlipidemia
Attention deficit disorder
Rheumatoid arthritis
Generalized anxiety disorder
Skull osteoma excision history
Physical examination:
HEENT: No pallor, cyanosis, or jaundice. Throat clear.
RESPIRATORY: Lungs clear to auscultation. Left chest wall healed surgical scar, no dehiscence, no drainage, no palpable fluid collection
CVS: S1, S2 normal. RRR. No murmur, rub or gallop.
ABDOMEN: Soft, non-tender. No distension. BS+/normal.
EXTREMITIES: No peripheral cyanosis or edema.
PROTOCOL OFFICER: AOx3. No focal deficits.
Hospital Course :
Patient is a 65-year-old male who was undergone recent minimal invasive bypass surgery came in with new onset of chest wall surgical site inflammation and minimal tenderness. Patient was afebrile. In ER on evaluation patient was ruled out of being
septic. CT chest was done which showed surgical site possible seroma. Cardiothoracic surgeon and infectious disease physicians were involved and patient was started on empiric antibiotic. Drainage of the collection was deferred as no complicating
factors found and clinical examination was relatively benign. Patient had improvement in cellulitis with IV antibiotic. At discharge ID recommended for patient to be maintained on course of Cipro/Doxy for 7 days.
Patient was also endorsing dry cough and difficulty with deep inspiration. CT chest showed a left-sided noncomplicated effusion. Interventional radiology was consulted for a routine thoracentesis although due to weekend patient was not able to
have that procedure. Patient was agreeable to have the procedure done on outpatient basis. Patient was provided physical prescription and intervention radiology department contact number to have outpatient thoracentesis arranged.
Patient was discharged home after this.
Important imaging findings :
CT chest
1. 2.7 cm loculated rim-enhancing enhancing fluid collection in the left anterior chest wall overlying the left anterior 5th rib. Diagnostic possibilities are (1) an abscess or (2) a postoperative seroma. Moderate surrounding subcutaneous edema
which could be cellulitis or postoperative inflammation
2. Minimal amount of nonloculated fluid in the anterior mediastinum.
3. MODERATE-SIZED LEFT PLEURAL EFFUSION causing compressive atelectasis of the basilar segments of the left lower lobe.
4. Recent CABG surgery and left atrial appendage exclusion.
5. Aberrant right subclavian artery.
6. Acute nondisplaced fracture or osteotomy of the left anterior 4th rib.
Procedure findings :
None
Discharge Plan
-
Patient Disposition: Home (Routine Discharge)
Discharge Diagnosis/Procedures: Left sided pleural effusion, Chest wall/ surgical site cellulitis
Condition: Fair
Diet: Regular
Driving Restrictions: As prior to admission
Bathing Restrictions: OK to Shower
Activity Restrictions/Additional Instructions:
If taking antacid, iron, zinc, magnesium, aluminum, calcium, or sucralfate, take these products 6 hours before or 2 hours after
ciprofloxacin and doxycycline.
Referrals:
IR department [Other]
Referral Note: Please call IR department to have Thoracentesis arranged.
Babatunde Salguero MD [Active, Cardiac Surgery] - in one to two weeks
Pily Zheng MD [Family Provider, Family Practice] - in one week
Prescriptions:
New
ciprofloxacin HCl [Cipro] 500 mg tablet
500 mg PO BID Qty: 14 0RF
doxycycline hyclate 100 mg capsule
100 mg PO BID Qty: 14 0RF
(DME) Left thoracentesis
See Rx Instructions .Route .MEDSUPPLY Qty: 1 0RF
Rx Instructions:
Left Thoracentesis
Dx : Left Pleural effusion
(DME) Pleural fluid studies
See Rx Instructions .Route .MEDSUPPLY Qty: 1 0RF
Rx Instructions:
Pleural fluid studies - Cell count/Glucose/Protein/LDH/pH/Gram stain & Fluid culture
For Interventional department use
Forward result to Dr Babatunde Salguero's office.
Continued
metoprolol succinate [Toprol XL] 25 mg tablet extended release 24 hr
25 mg PO BID
hydroxychloroquine 200 mg Tablet
200 mg PO BID
atorvastatin 40 mg tablet
40 mg PO QPM Qty: 90 10RF
Eliquis 5 mg tablet
5 mg PO BID
acetaminophen 325 mg Tablet
650 mg PO Q6HPRN PRN (Reason: mild pain,headache,temp >101F ) Qty: 0 0RF
clopidogrel 75 mg Tablet
75 mg PO DAILY 60 Days Qty: 60 0RF
Rx Instructions:
To continue for 1-year. Re-fills to be obtained by [facility].
metformin 500 mg Tablet
500 mg PO DAILY Qty: 0 0RF
Rx Instructions:
Continue on 04/17/25
metformin 500 mg Tablet
1,000 mg PO HS Qty: 0 0RF
Rx Instructions:
Resume on 04/17/25
amiodarone [Pacerone] 200 mg Tablet
100 mg PO DAILY Qty: 15 2RF
hydroxyzine pamoate 25 mg Capsule
25 mg PO HS
dextroamphetamine-amphetamine [Adderall] 20 mg tablet
20 mg PO DAILY PRN (Reason: Mental Health/Anxiety)
Discharge Orders:
Discharge Patient (As Directed); Ordered 05/15/25
Ordered By: Josh Banerjee
Discharge Date and Time
Print Language: PORTUGUESE
[2025-05-15 11:00] VITALS: BP 115/66
[2025-05-15] MEDS: ELIQUIS 5 MG PO (11:06)
== END 2025-05-15 11:24 | disposition home or self-care (01) | DRG 863 ==
LOC: 3 WEST ACU 19:00
PROVIDERS: ADMITTING PHYSICIAN Hospitalist; ATTENDING PHYSICIAN Hospitalist; CONSULT PHYSICIAN Internal Medicine Infectious Disease; CONSULT PHYSICIAN Thoracic Surgery (Cardiothoracic Vascular Surgery); EMERGENCY PHYSICIAN Emergency Medicine; FAMILY PHYSICIAN Family Medicine
DX: T81.41XA Infection following a procedure, superficial incisional surgical site, initial encounter (principal); L03.313 Cellulitis of chest wall; J90 Pleural effusion, not elsewhere classified; J98.11 Atelectasis; N17.9 Acute kidney failure, unspecified; Z95.1 Presence of aortocoronary bypass graft; Q27.8 Other specified congenital malformations of peripheral vascular system; Q23.81 Bicuspid aortic valve; I48.0 Paroxysmal atrial fibrillation; Z79.01 Long term (current) use of anticoagulants; E11.9 Type 2 diabetes mellitus without complications; I10 Essential (primary) hypertension; E78.00 Pure hypercholesterolemia, unspecified; M06.9 Rheumatoid arthritis, unspecified; F90.9 Attention-deficit hyperactivity disorder, unspecified type; F41.9 Anxiety disorder, unspecified; I25.10 Atherosclerotic heart disease of native coronary artery without angina pectoris; Z98.61 Coronary angioplasty status; Z79.02 Long term (current) use of antithrombotics/antiplatelets; Z79.84 Long term (current) use of oral hypoglycemic drugs; Z79.899 Other long term (current) drug therapy
CPT/HCPCS: 71260; 80053; 80202; 82962; 83036; 83615; 85025; 93005; 93798; 96360; 99283; Q9967

== ENCOUNTER → 2025-05-18 09:23 | Outpatient (REF) | payer BC, SELFPAY ==
[2025-05-18 09:40] VITALS: BP 137/83; BP_SYST 69
[2025-05-18 10:40] VITALS: BP 137/83; BP 137/85; BP_SYST 69
[2025-05-18 11:26] LABS: Body Fluid Second Tech US
== END ==
LOC: RADI 09:23
PROVIDERS: ATTENDING PHYSICIAN Hospitalist; FAMILY PHYSICIAN Family Medicine
DX: J90 Pleural effusion, not elsewhere classified (principal)
CPT/HCPCS: 32555; 71045; 82945; 83615; 83986; 84157; 87015; 87070; 87205; 89051

== ENCOUNTER → 2025-06-01 13:01 | Outpatient (REF) | payer BC, SELFPAY | LOC: RAD 13:01 | PROVIDERS: ATTENDING PHYSICIAN Nurse Practitioner Family | DX: J90 Pleural effusion, not elsewhere classified (principal) | CPT/HCPCS: 71046 ==

== ENCOUNTER → 2025-06-03 07:06 | Outpatient (REF) | payer BC, SELFPAY ==
[2025-06-03 07:25] VITALS: BP 100/75; BP_SYST 70
[2025-06-03 07:44] VITALS: BP 98/69; BP_SYST 66
[2025-06-03 07:53] VITALS: BP 98/69
== END ==
LOC: RADI 07:06
PROVIDERS: ATTENDING PHYSICIAN Thoracic Surgery (Cardiothoracic Vascular Surgery); FAMILY PHYSICIAN Nurse Practitioner Family
DX: J90 Pleural effusion, not elsewhere classified (principal)
CPT/HCPCS: 32555; 71045

== ENCOUNTER 2025-06-06 16:19 | Outpatient (RCR) | payer BC, SELFPAY ==
[2025-05-13 10:12] LABS: Glucose - Point of Care 87 mg/dl (70-99)
[2025-05-13 10:29] LABS: Glucose - Point of Care 91 mg/dl (70-99)
[2025-05-13 11:05] LABS: Glucose - Point of Care 82 mg/dl (70-99)
[2025-05-20 15:56] LABS: Glucose - Point of Care 115 mg/dl (70-99)
[2025-05-20 16:48] LABS: Glucose - Point of Care 113 mg/dl (70-99)
[2025-05-30 15:54] LABS: Glucose - Point of Care 87 mg/dl (70-99)
[2025-05-30 16:13] LABS: Glucose - Point of Care 100 mg/dl (70-99)
[2025-05-30 16:59] LABS: Glucose - Point of Care 95 mg/dl (70-99)
[2025-06-06 15:49] LABS: Glucose - Point of Care 154 mg/dl (70-99)
[2025-06-06 16:46] LABS: Glucose - Point of Care 103 mg/dl (70-99)
== END 2025-06-06 23:59 | disposition home or self-care (01) ==
LOC: CRHB 16:19
PROVIDERS: ATTENDING PHYSICIAN Internal Medicine Cardiovascular Disease
DX: I25.10 Atherosclerotic heart disease of native coronary artery without angina pectoris (principal); Z95.1 Presence of aortocoronary bypass graft; Z95.5 Presence of coronary angioplasty implant and graft
CPT/HCPCS: 82962; 93797; 93798

== ENCOUNTER 2025-06-08 15:50 | Outpatient (RCR) | payer BC, SELFPAY ==
[2025-06-08 15:56] LABS: Glucose - Point of Care 87 mg/dl (70-99)
[2025-06-08 16:13] LABS: Glucose - Point of Care 106 mg/dl (70-99)
[2025-06-08 16:50] LABS: Glucose - Point of Care 111 mg/dl (70-99)
== END 2025-06-08 23:59 | disposition home or self-care (01) ==
LOC: CRHB 15:50
PROVIDERS: ATTENDING PHYSICIAN Internal Medicine Cardiovascular Disease
DX: Z95.1 Presence of aortocoronary bypass graft (principal); Z95.5 Presence of coronary angioplasty implant and graft
CPT/HCPCS: 82962; 93798

== ENCOUNTER → 2025-06-10 15:52 | Outpatient (REF) | payer BC, SELFPAY | LOC: RAD 15:52 | PROVIDERS: ATTENDING PHYSICIAN Thoracic Surgery (Cardiothoracic Vascular Surgery); FAMILY PHYSICIAN Nurse Practitioner Family | DX: J90 Pleural effusion, not elsewhere classified (principal) | CPT/HCPCS: 71046 ==

== ENCOUNTER → 2025-06-24 09:22 | Outpatient (REF) | payer BC, SELFPAY ==
[2025-06-24 10:04] VITALS: BP 126/73; BP_SYST 63
[2025-06-24 11:20] VITALS: BP 110/74
== END ==
LOC: RADI 09:22
PROVIDERS: ATTENDING PHYSICIAN Thoracic Surgery (Cardiothoracic Vascular Surgery); FAMILY PHYSICIAN Nurse Practitioner Family
DX: J90 Pleural effusion, not elsewhere classified (principal); I25.10 Atherosclerotic heart disease of native coronary artery without angina pectoris; Z95.1 Presence of aortocoronary bypass graft
CPT/HCPCS: 32555; 71045

== ENCOUNTER → 2025-08-06 07:03 | Outpatient (REF) | payer BC, SELFPAY | LOC: RCS 07:03 | PROVIDERS: ATTENDING PHYSICIAN Internal Medicine Cardiovascular Disease; FAMILY PHYSICIAN Nurse Practitioner Family | DX: Q23.81 Bicuspid aortic valve (principal) | CPT/HCPCS: 93308; 93321; 93325 ==